=== PATIENT | female | born 1955 | race Caucasian/White ===

== ENCOUNTER → 2016-10-28 | Outpatient (CLI) | payer MEDICAID ==
[2016-10-28 09:57] LABS: ALT 30 U/L (9-52); AST 18 U/L (14-36); Alkaline Phosphatase 96 U/L (38-126); Anion Gap 14 mmol/L; Basophils # (A) 0.1 k/uL (0-0.2); Basophils % (A) 2 %; Blood Urea Nitrogen 19 mg/dL (7-17); CH 28.9; CHCM 31.9; Calcium 9.9 mg/dL (8.4-10.2); Carbon Dioxide 23 mmol/L (22-30); Chloride 105 mmol/L (98-107); Cholesterol 192 mg/dL (<200); Eosinophils # (A) 0.2 k/uL (0-0.7); Eosinophils % (A) 2 %; Glucose 101 mg/dL (74-99); HCT 40.2 % (34.0-46.0); HDL Cholesterol 64 mg/dL (40-60); HDW 2.65; HGB 12.9 gm/dL (11.4-16.0); Luc # (Auto) 0.22; Luc % (Auto) 3; Lymphocytes % (A) 29 %; MCH 29.1 pg (25.0-35.0); MCV 90.9 fL (80.0-100.0); Mean Platelet Volume 7.1; Monocytes # (A) 0.4 k/uL (0-1.0); Monocytes % (A) 6 %; Neutrophils # (A) 3.8 k/uL (1.3-7.7); Neutrophils % (A) 57 %; Non-African American GFR(MDRD) 50 (>60 ml/min/1.73 sqM); Potassium 4.1 mmol/L (3.5-5.1); RBC 4.43 m/uL (3.80-5.40); RDW 13.5 % (11.5-15.5); Sodium 142 mmol/L (137-145); Total Bilirubin 0.6 mg/dL (0.2-1.3); Total Protein 7.5 g/dL (6.3-8.2); Triglycerides 93 mg/dL (<150); WBC 6.7 k/uL (3.8-10.6); WBC (Perox) 7.05
== END ==
LOC: LABWHC1 08:45
PROVIDERS: ATTEND Family Medicine
DX: I10 Essential (primary) hypertension (principal); E03.9 Hypothyroidism, unspecified; Z79.899 Other long term (current) drug therapy
CPT/HCPCS: 36415; 80053; 80061; 84443; 85025

== ENCOUNTER → 2016-10-28 | Outpatient (CLI) | payer MEDICAID ==
--- NOTE | 2016-10-28 17:07 | WWHP ---
CHIEF COMPLAINT: Patient is here for her routine gynecologic exam and mammogram. HPI: This is a 61-year-old, G3, P2-1-0-4 with an LMP of 1996. She is status post vaginal hysterectomy with rectocele repair in 1996. She denies any significant hot flashes, but is complaining of vaginal dryness with intercourse. She has used vaginal lubricant, but continues to have some dryness. PAST MEDICAL HISTORY: Chronic hypertension, gastroesophageal reflux disease, hypothyroidism and depression. MEDICATIONS: 1. Lotrel 10/20 mg daily. 2. Nexium 20 mg daily. 3. Celexa 20 mg daily. 4. Synthroid 125 mcg daily. ALLERGIES TO SULFA, WHICH CAUSED HIVES. PAST SURGICAL HISTORY: Vaginal hysterectomy with rectocele repair in 1996, laparotomy with removal of an endometrioma at age 30, knee surgery in the past, retinal eye surgery, colonoscopy x3. The most recent was 2012 and a breast reduction surgery in the past. PAST OB HISTORY: 4 vaginal deliveries. 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 She has no history of STDs. SOCIAL HISTORY: She denies tobacco and drug use and has about 4 alcoholic drinks per year. 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 She has 12 grandchildren. FAMILY HISTORY: Sister, brother and mother have diabetes. Brother and father have coronary artery disease in her father from an CA. She denies family history cancer of the breast, uterus, ovaries or colon. PHYSICAL EXAM: Blood pressure 165/83. Height 5 feet 9 inches. Weight 273 pounds. Temperature 96.3, pulse 116. Ts is a well-developed, heavyset white female who is alert and oriented x3, in no acute distress. HEENT is within normal limits. NECK: Supple without mass or thyromegaly. CHEST AND LUNGS: Clear to auscultation. HEART: Mild tachycardia. Breasts are without mass or discharge. Axillary is negative for adenopathy. BACK: Negative for CVA tenderness. ABDOMEN: Soft, nontender, without palpable masses. PELVIC: External genitalia reveals mild atrophy without lesions. Vagina reveals mild atrophy without lesions and there is no evidence of prolapse. Bimanual is negative for mass or tenderness. Rectovaginal is negative for mass or tenderness and is negative for occult blood. EXTREMITIES: Nontender. IMPRESSION: 1. A 61-year-old menopausal female, status post vaginal hysterectomy for benign reasons with normal gynecologic exam. 2. Vaginal dryness secondary to genital atrophy. PLAN: 1. Pap smears have been discontinued. 2. Self-breast examination was discussed. 3. Mammogram will be done today. Her last one was about 4 to 5 years ago. 4. We have discussed her elevated blood pressure. She does do self-blood pressure checks and will follow up with Dr. De Dios for her elevated blood pressures. She states she has an appointment with him coming up this month. 5. Osteoporosis prevention was discussed. She states she had a normal bone density test with Dr. De Dios in his office approximately 2014. 6. Trial of Premarin vaginal cream 1 to 2 g intravaginally twice weekly for her vaginal dryness. 7. She will return in 1 year.
--- NOTE | 2016-10-29 11:30 | MM ---
Reason for exam: screening (asymptomatic). Last mammogram was performed 5 years and 4 months ago. History: Patient is postmenopausal. Reductions of both breasts, 2002. Physical Findings: A clinical breast exam by your physician is recommended on an annual basis and results should be correlated with mammographic findings. MG 3D Screening Mammo W/Cad Bilateral CC and MLO view(s) were taken. Prior study comparison: June 15, 2011, CAD bilateral diagnostic mammogram. October 30, 2008, bilateral diagnostic digital mammog. The breast tissue is almost entirely fat. There is no discrete abnormality. No significant changes when compared with prior studies. ASSESSMENT: Negative, BI-RAD 1 RECOMMENDATION: Routine screening mammogram of both breasts in 1 year.
== END | disposition home or self-care (01) ==
LOC: WWCWWP 07:38
PROVIDERS: ATTEND Obstetrics & Gynecology
DX: Z12.31 Encounter for screening mammogram for malignant neoplasm of breast (principal)
CPT/HCPCS: 77063; G0202; 36415; 80053; 80061; 84443; 85025

== ENCOUNTER → 2018-02-15 | Outpatient (CLI) | payer MEDICAID ==
--- NOTE | 2018-02-15 15:00 | XR ---
EXAMINATION TYPE: XR skull complete DATE OF EXAM: 02/15/2018 COMPARISON: NONE HISTORY: Occipital skull pain. TECHNIQUE: 4 views of the skull were obtained. FINDINGS: No diploic space widening is seen. No lytic lesion is noted. No osseous calvarial suspiciou s lesion is seen. No sutural widening. Orbits are symmetric. Minimal mucosal thickening is present wi thin the maxillary sinuses. Nasal septum is midline. No focal soft tissue swelling. No evidence of ac garfield fracture or dislocation. IMPRESSION: No suspicious radiographic findings of the skull or surrounding soft tissues.
--- NOTE | 2018-02-15 15:43 | XR ---
EXAMINATION TYPE: XR cervical spine comp DATE OF EXAM: 02/15/2018 TECHNIQUE: Frontal, lateral, oblique, swimmers, and open mouth view of the cervical spine are katte d. HISTORY: M54.12 M79.2 COMPARISON: None FINDINGS: The cervical spine is visualized in its entirety from C1 thru the top of T1 level, it is s atisfactory in alignment without evidence of acute fracture or dislocation. Multilevel small anterior osteophytes and intervertebral disc space narrowing are seen in addition to minimal facet arthropath y and uncovertebral hypertrophy. There is mild right-sided neural foraminal narrowing at C6-C7 and at C5-6 on the left . The pre-vertebral soft tissue appears within normal limits. The C1-C2 articulati on is within normal limits on the open mouth view. The oblique images are within normal limits. IMPRESSION: No acute fracture or dislocation is seen in the cervical spine. Mild multilevel degenera tive disc disease with resultant mild neural foraminal narrowing radiographically at C6-C7 on the rig ht and C5-C6 on the left.
== END | disposition home or self-care (01) ==
LOC: RADXRMAIN 12:52
PROVIDERS: ATTEND Family Medicine
DX: M99.71 Connective tissue and disc stenosis of intervertebral foramina of cervical region (principal); M50.10 Cervical disc disorder with radiculopathy, unspecified cervical region; M79.2 Neuralgia and neuritis, unspecified
CPT/HCPCS: 70260; 72050

== ENCOUNTER → 2018-03-22 | Outpatient (CLI) | payer MEDICAID ==
[2018-03-22 08:08] VITALS: BP 136/85; PULSE 90; TEMP 97.9; BMI 39.5
--- NOTE | 2018-03-22 08:36 | P.HPOB ---
History of Present Illness H&P Date: 03/22/18 Chief Complaint: The patient is here for her routine gynecologic exam and mammogram. This is a 62-year-old with an LMP of 1996. The patient is status post vaginal hysterectomy and rectocele repair in 1996. Patient is without gynecologic complaints. Review of Systems The patient has lost 5 pounds over the last year. She denies respiratory, cardiac, or G.I. problems. 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 She is s/p Vaginal hysterectomy and rectocele repair. History of Any Multi-Drug Resistant Organisms: None Reported Past Surgical History: Breast Surgery (Reduction surgery), Hysterectomy ( Vaginal 1996 with rectocele repair), Orthopedic Surgery Additional Past Surgical History / Comment(s): RIGHT EYE REPAIR ,LEFT KNEE, laparotomy with the removal of endometrioma at age 30. Colonoscopy 2013(3rd). 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 - Past Family History Sister(s) Family Medical History: Diabetes Mellitus Brother(s) Family Medical History: Diabetes Mellitus, Myocardial Infarction ([place]) Mother Family Medical History: Diabetes Mellitus Father Family Medical History: Myocardial Infarction ([place]), Thyroid Disorder Medications and Allergies Home Medications Medication Instructions Recorded Confirmed Type Citalopram Hydrobromide [CeleXA] mg PO DAILY 03/22/18 History Esomeprazole Magnesium [NexIUM] mg PO DAILY 03/22/18 History Levothyroxine Sodium [Synthroid] mcg PO DAILY 03/22/18 History amLODIPine BESYLATE/BENAZEPRIL cap PO DAILY 03/22/18 History [Lotrel 10-20 mg Capsule] Allergies Allergy/AdvReac Type Severity Reaction Status Date / Time Sulfa (Sulfonamide Allergy Rash/Hives Verified 03/22/18 08:03 Antibiotics) Exam Vital Signs Temp Pulse BP 03/22/18 08:03 97.9 F 90 136/85 Intake and Output 03/21/18 03/22/18 03/22/18 22:59 06:59 14:59 Other: Weight 121.563 kg Height 5'9", BMI 39.6. This is a well-developed well-nourished heavyset white female who is alert and oriented times 3 in no acute distress. HEENT: Within normal limits. NECK: Supple without mass or thyromegaly. CHEST AND LUNGS: Clear to auscultation. HEART: Regular rate and rhythm. BREASTS: Are without mass or discharge. Consistent with bilateral breast reduction surgery. AXILLARY EXAM: Negative for adenopathy. BACK: Negative for CVA tenderness. ABDOMEN: Soft, nontender, without palpable masses. PELVIC EXAM: External genitalia appears normal with mild atrophy. Vagina appears normal is mild atrophy. There is no evidence of prolapse. Bimanual examination is negative for mass or tenderness. RECTAL EXAM: Rectovaginal exam is negative for mass or tenderness and is negative for occult blood. EXTREMITIES: Nontender. IMPRESSION: 1. 62-year-old menopausal female status post vaginal hysterectomy and rectocele repair for benign reasons with normal gynecologic exam. PLAN: 1. Pap smears have been discontinued. 2. Self breast awareness was discussed with the patient. 3. Screening mammogram will be done today. 4. Osteoporosis prevention was discussed. Bone density testing was done by Dr. De Dios approximately in 2014 and was normal for the patient. She will do her bone density testing through Dr. De Dios. 5. She will return in one year.
--- NOTE | 2018-03-23 12:48 | MM ---
Reason for exam: screening (asymptomatic). Last mammogram was performed 1 year and 5 months ago. History: Patient is postmenopausal. Reductions of both breasts, 2001. Physical Findings: A clinical breast exam by your physician is recommended on an annual basis and results should be correlated with mammographic findings. MG 3D Screening Mammo W/Cad Bilateral CC and MLO view(s) were taken. Prior study comparison: October 28, 2016, bilateral MG 3d screening mammo w/cad. June 15, 2011, CAD bilateral diagnostic mammogram. The breast tissue is almost entirely fat. Stable benign calcifications. There is no discrete abnormality. No significant changes when compared with prior studies. ASSESSMENT: Benign, BI-RAD 2 RECOMMENDATION: Routine screening mammogram of both breasts in 1 year.
== END | disposition home or self-care (01) ==
LOC: WWCWWP 07:50
PROVIDERS: ATTEND Obstetrics & Gynecology
DX: Z12.31 Encounter for screening mammogram for malignant neoplasm of breast (principal)
CPT/HCPCS: 77063; 77067

== ENCOUNTER → 2019-06-28 | Outpatient (CLI) | payer MEDICAID ==
[2019-06-28 11:41] VITALS: BP 135/89; PULSE 86; RESP 18; TEMP 98.2
--- NOTE | 2019-06-28 12:09 | P.HPOB ---
History of Present Illness H&P Date: 06/28/19 Chief Complaint: The patient is here for her routine gynecologic exam and ma mmogram. This is a 64 year old 0104 with an LMP of 1996. The patient is status post vaginal hysterectomy with rectocele repair for benign reasons. The patient is without gynecologic complaints. Review of Systems The patient's weight has been stable over the last year. She denies respiratory, cardiac, or G.I. problems. Past Medical History Past Medical History: GERD/Reflux, Hypertension, Thyroid Disorder Additional Past Medical History / Comment(s): Hypothyroidism. 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 History of Any Multi-Drug Resistant Organisms: None Reported Past Surgical History: Breast Surgery, Hysterectomy, Orthopedic Surgery Additional Past Surgical History / Comment(s): RIGHT EYE REPAIR ,LEFT KNEE, bilateral breast reduction, laparotomy with the removal of endometrioma at age 30. Colonoscopy 2013(3rd, next after 10yr). 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 - Past Family History Sister(s) Family Medical History: Diabetes Mellitus Brother(s) Family Medical History: Diabetes Mellitus, Myocardial Infarction ([place]) Mother Family Medical History: Diabetes Mellitus Father Family Medical History: Myocardial Infarction ([place]), Thyroid Disorder Medications and Allergies Home Medications Medication Instructions Recorded Confirmed Type Citalopram Hydrobromide [CeleXA] 20 mg PO DAILY 03/22/18 06/28/19 History Esomeprazole Magnesium [NexIUM] 20 mg PO DAILY 03/22/18 06/28/19 History Levothyroxine Sodium [Synthroid] 25 mcg PO DAILY 03/22/18 06/28/19 History amLODIPine BESYLATE/BENAZEPRIL 1 cap PO DAILY 03/22/18 06/28/19 History [Lotrel 10-20 mg Capsule] Allergies Allergy/AdvReac Type Severity Reaction Status Date / Time Sulfa (Sulfonamide Allergy Rash/Hives Verified 06/28/19 11:41 Antibiotics) Exam Vital Signs Temp Pulse Resp BP Pulse Ox 06/28/19 11:35 98.2 F 86 18 135/89 95 Intake and Output 06/27/19 06/28/19 06/28/19 22:59 06:59 14:59 Other: Weight 120.656 kg Height 5 feet 9 inches, weight 266 pounds, BMI 39.3. This is a well-developed well-nourished heavyset white female who is alert and oriented times 3 in no acute distress. HEENT: Within normal limits. NECK: Supple without mass or thyromegaly. CHEST AND LUNGS: Clear to auscultation. HEART: Regular rate and rhythm. BREASTS: Are without mass or discharge. Both breasts are consistent with previous breast reduction surgery. AXILLARY EXAM: Negative for adenopathy. BACK: Negative for CVA tenderness. ABDOMEN: Soft, nontender, without palpable masses. PELVIC EXAM: External genitalia appears normal with mild atrophy. Vagina appears normal mild atrophy. There is no evidence of prolapse. Bimanual examination is negative for mass or tenderness. RECTAL EXAM: Rectovaginal exam is negative for mass or tenderness and is negative for occult blood. EXTREMITIES: Nontender. IMPRESSION: 1. 64-year-old menopausal female who is status post vaginal hysterectomy and rectocele repair for benign reasons, with normal gynecologic exam. PLAN: 1. Pap smears have been discontinued. 2. Self breast awareness was discussed with the patient. 3. Screening mammogram will be done today. 4. Osteoporosis prevention was discussed. I have stressed the importance of adequate calcium, vitamin D and regular exercise. Recommended amounts of calcium and vitamin D were also discussed. She previously had a bone density test done through Dr. De Dios in 2015 and was normal per the patient. I have recommended repeating bone density testing at her next well woman visit. 5. The patient was advised to return in 1-2 years for her well woman examination.
--- NOTE | 2019-06-30 12:24 | MM ---
Reason for exam: screening (asymptomatic). Last mammogram was performed 1 year and 3 months ago. History: Patient is postmenopausal. Reductions of both breasts, 2002. Physical Findings: A clinical breast exam by your physician is recommended on an annual basis and results should be correlated with mammographic findings. MG 3D Screening Mammo W/Cad Bilateral CC and MLO view(s) were taken. Prior study comparison: March 22, 2018, bilateral MG 3d screening mammo w/cad. October 28, 2016, bilateral MG 3d screening mammo w/cad. The breast tissue is almost entirely fat. No significant changes when compared with prior studies. ASSESSMENT: Benign, BI-RAD 2 RECOMMENDATION: Routine screening mammogram of both breasts in 1 year.
== END | disposition home or self-care (01) ==
LOC: WWCWWP 11:15
PROVIDERS: ATTEND Obstetrics & Gynecology
DX: Z12.31 Encounter for screening mammogram for malignant neoplasm of breast (principal)
CPT/HCPCS: 77063; 77067

== ENCOUNTER 2020-06-15 18:27 | Observation (INO) | payer MEDICARE ==
[2020-06-15] MEDS ORDERED: ONDANSETRON 4 MG/2 ML VIAL IVP STA (18:49)
[2020-06-15] MEDS ORDERED: MAG HYDROX/AL HYDROX/SIMETH 30 ML, HYOSCYAMINE ELIXIR 10 ML, LIDOCAINE VISCOUS 2% 10 ML PO STA ×3 (18:50)
--- NOTE | 2020-06-15 19:01 | ED ---
General Adult HPI - General Chief complaint: Chest Pain Stated complaint: chest pain Time Seen by Provider: 06/15/20 18:36 Source: patient Mode of arrival: ambulatory Limitations: no limitations - History of Present Illness Initial comments: Patient presents the ED with her for evaluation. Patient states that she developed epigastric abdominal pain radiating to her left shoulder and right jaw about 25 minutes ago. Patient states that her pain began about 10 minutes after eating dinner, and she states that she ate pancakes and sausage for d inner. Patient also states that she had a small bout of emesis when her pain was more severe, but she denies feeling nauseated currently. Patient states that her pain was 10 out of 10 when at its worst, and she states that her pain is currently 5 out of 10 in severity. Patient denies trauma or injury, fever or chills, headache, focal neuro deficit, chest pain, dyspnea, cough or cold symptoms, palpitations, dizziness, diarrhea or constipation, bloody or melanotic stool, hematemesis, dysuria or urinary symptoms, back or flank pain, leg or calf swelling or pain, or any other symptoms or complaints. Patient states that she has a hiatal hernia. - Related Data Home Medications Medication Instructions Recorded Confirmed Citalopram Hydrobromide [CeleXA] 20 mg PO DAILY 03/22/18 06/15/20 Esomeprazole Magnesium [NexIUM] 20 mg PO DAILY 03/22/18 06/15/20 amLODIPine BESYLATE/BENAZEPRIL 1 cap PO DAILY 03/22/18 06/15/20 [Lotrel 10-20 mg Capsule] Cetirizine HCl [Zyrtec] 10 mg PO DAILY 06/15/20 06/15/20 Levothyroxine Sodium [Synthroid] 125 mcg PO DAILY 06/15/20 06/15/20 Vitamin D3(Unknown Dose) 1 tab PO DAILY 06/15/20 06/15/20 Allergies Allergy/AdvReac Type Severity Reaction Status Date / Time Sulfa (Sulfonamide Allergy Rash/Hives Verified 06/15/20 18:32 Antibiotics) Review of Systems ROS Statement: Those systems with pertinent positive or pertinent negative responses have been documented in the HPI. ROS Other: All systems not noted in ROS Statement are negative. Past Medical History Past Medical History: GERD/Reflux, Hypertension, Thyroid Disorder Additional Past Medical History / Comment(s): Hypothyroidism. 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 History of Any Multi-Drug Resistant Organisms: None Reported Past Surgical History: Breast Surgery, Hysterectomy, Orthopedic Surgery Additional Past Surgical History / Comment(s): RIGHT EYE REPAIR ,LEFT KNEE, bilateral breast reduction, laparotomy with the removal of endometrioma at age 30. Colonoscopy 2013(3rd, next after 10yr). Past Psychological History: Depression Smoking Status: Never smoker Past Alcohol Use History: Rare Past Drug Use History: None Reported - Past Family History Sister(s) Family Medical History: Diabetes Mellitus Additional Family Medical History / Comment(s): Brother with CAD Brother(s) Family Medical History: Diabetes Mellitus, Myocardial Infarction ([place]) Mother Family Medical History: Diabetes Mellitus Father Family Medical History: Myocardial Infarction ([place]), Thyroid Disorder General Exam Limitations: no limitations General appearance: alert, in no apparent distress Head exam: Present: atraumatic, normocephalic Eye exam: Present: normal appearance, EOMI ENT exam: Present: mucous membranes moist Neck exam: Present: other (Trachea is in midline) Respiratory exam: Present: normal lung sounds bilaterally. Absent: respiratory distress, wheezes, rales, rhonchi Cardiovascular Exam: Present: regular rate, normal rhythm, normal heart sounds, other (Normal radial pulses bilaterally) GI/Abdominal exam: Present: soft, other (Mild epigastric tenderness; negative Lynn's sign). Absent: distended, guarding, rebound Extremities exam: Present: other (Negative Homans sign bilaterally). Absent: tenderness, pedal edema, calf tenderness Neurological exam: Present: alert, oriented X3. Absent: motor sensory deficit Psychiatric exam: Present: normal affect, normal mood Skin exam: Present: warm, dry, intact, normal color Course Vital Signs 06/15/20 06/15/20 06/15/20 18:34 18:42 19:40 Temperature 99.9 F H Pulse Rate 86 84 Pulse Rate [ 85 Bag Sealer ] Respiratory 18 18 16 Rate Blood Pressure 164/121 150/95 O2 Sat by Pulse 100 99 Oximetry 06/15/20 21:00 Temperature 98.2 F Pulse Rate 80 Pulse Rate [ Bag Sealer ] Respiratory 16 Rate Blood Pressure 156/91 O2 Sat by Pulse 98 Oximetry - Reevaluation(s) Reevaluation #1: 06/15/20 20:53 Patient states that her pain has improved with ED treatment, and she denies development of any new symptoms while in the ED. Patient states that her epigastric pain has now resolved, but she continues to have mild left shoulder pain. Patient remains alert and breathing comfortably. Patient and are aware the patient's test results, and patient agrees with hospital admission at this time. 06/15/20 21:11 Case, H&P, test results and ED management thus far were discussed with Dr. De Dios. He accepts observational hospital admission. He recommends cardiology consultation. He has no further recommendations at this time. EKG Findings - EKG Comments: EKG Findings:: Normal sinus rhythm, ventricular rate of 92 bpm, no ectopy, normal OK and QRS intervals, normal QT interval, leftward axis, nonspecific ST abnormality Medical Decision Making - Medical Decision Making Patient's EKG shows no definite acute ischemic abnormality. Patient's chest x- ray and gallbladder ultrasound are unremarkable. Patient's troponin is negative. Patient's labs are fairly unremarkable. Given the patient's cardiac risk factors and symptoms, will admit the patient to the hospital for serial troponins, further evaluation and monitoring. Dr. De Dios has accepted hospital admission. - Lab Data Result diagrams: 06/15/20 18:59 06/15/20 18:59 Lab Results 06/15/20 06/15/20 06/15/20 Range/Units 18:59 18:59 18:59 WBC 9.6 (3.8-10.6) k/uL RBC 4.83 (3.80-5.40) m/uL Hgb 12.3 (11.4-16.0) gm/dL Hct 39.0 (34.0-46.0) % MCV 80.7 (80.0-100.0) fL MCH 25.5 (25.0-35.0) pg MCHC 31.6 (31.0-37.0) g/dL RDW 15.1 (11.5-15.5) % Plt Count 417 (150-450) k/uL MPV 7.2 Neutrophils % 61 % Lymphocytes % 28 % Monocytes % 5 % Eosinophils % 3 % Basophils % 1 % Neutrophils # 5.8 (1.3-7.7) k/uL Lymphocytes # 2.7 (1.0-4.8) k/uL Monocytes # 0.5 (0-1.0) k/uL Eosinophils # 0.3 (0-0.7) k/uL Basophils # 0.1 (0-0.2) k/uL PT 9.7 (9.0-12.0) sec INR 0.9 (<1.2) APTT 23.7 (22.0-30.0) sec Sodium 136 L (137-145) mmol/L Potassium 3.9 (3.5-5.1) mmol/L Chloride 106 (98-107) mmol/L Carbon Dioxide 21 L (22-30) mmol/L Anion Gap 9 mmol/L BUN 19 H (7-17) mg/dL Creatinine 0.75 (0.52-1.04) mg/dL Est GFR (CKD-EPI)AfAm >90 (>60 ml/min/1.73 sqM) Est GFR (CKD-EPI)NonAf 83 (>60 ml/min/1.73 sqM) Glucose 121 H (74-99) mg/dL Calcium 9.3 (8.4-10.2) mg/dL Magnesium 1.9 (1.6-2.3) mg/dL Total Bilirubin 0.4 (0.2-1.3) mg/dL AST 21 (14-36) U/L ALT 18 (4-34) U/L Alkaline Phosphatase 106 (38-126) U/L Troponin I (0.000-0.034) ng/mL NT-Pro-B Natriuret Pep pg/mL Total Protein 7.2 (6.3-8.2) g/dL Albumin 4.1 (3.5-5.0) g/dL Lipase 140 (23-300) U/L 06/15/20 06/15/20 Range/Units 18:59 18:59 WBC (3.8-10.6) k/uL RBC (3.80-5.40) m/uL Hgb (11.4-16.0) gm/dL Hct (34.0-46.0) % MCV (80.0-100.0) fL MCH (25.0-35.0) pg MCHC (31.0-37.0) g/dL RDW (11.5-15.5) % Plt Count (150-450) k/uL MPV Neutrophils % % Lymphocytes % % Monocytes % % Eosinophils % % Basophils % % Neutrophils # (1.3-7.7) k/uL Lymphocytes # (1.0-4.8) k/uL Monocytes # (0-1.0) k/uL Eosinophils # (0-0.7) k/uL Basophils # (0-0.2) k/uL PT (9.0-12.0) sec INR (<1.2) APTT (22.0-30.0) sec Sodium (137-145) mmol/L Potassium (3.5-5.1) mmol/L Chloride (98-107) mmol/L Carbon Dioxide (22-30) mmol/L Anion Gap mmol/L BUN (7-17) mg/dL Creatinine (0.52-1.04) mg/dL Est GFR (CKD-EPI)AfAm (>60 ml/min/1.73 sqM) Est GFR (CKD-EPI)NonAf (>60 ml/min/1.73 sqM) Glucose (74-99) mg/dL Calcium (8.4-10.2) mg/dL Magnesium (1.6-2.3) mg/dL Total Bilirubin (0.2-1.3) mg/dL AST (14-36) U/L ALT (4-34) U/L Alkaline Phosphatase (38-126) U/L Troponin I <0.012 (0.000-0.034) ng/mL NT-Pro-B Natriuret Pep 132 pg/mL Total Protein (6.3-8.2) g/dL Albumin (3.5-5.0) g/dL Lipase (23-300) U/L - Radiology Data Radiology results: report reviewed (Gallbladder ultrasound is negative), image reviewed (Chest x-ray shows a hiatal hernia and no acute cardiopulmonary disease) Disposition Clinical Impression: Epigastric pain Disposition: ADMITTED IP TO THIS [facility] Condition: Stable Is patient prescribed a controlled substance at d/c from ED?: No Time of Disposition: 20:56
[2020-06-15 19:26] LABS: Basophils # (A) 0.1 k/uL (0-0.2); Basophils % (A) 1 %; Eosinophils # (A) 0.3 k/uL (0-0.7); Eosinophils % (A) 3 %; HGB 12.3 gm/dL (11.4-16.0); Lymphocytes # (A) 2.7 k/uL (1.0-4.8); Lymphocytes % (A) 28 %; MCH 25.5 pg (25.0-35.0); MCHC 31.6 g/dL (31.0-37.0); MCV 80.7 fL (80.0-100.0); Mean Platelet Volume 7.2; Monocytes # (A) 0.5 k/uL (0-1.0); Monocytes % (A) 5 %; Neutrophils # (A) 5.8 k/uL (1.3-7.7); Neutrophils % (A) 61 %; Platelet Count 417 k/uL (150-450); RBC 4.83 m/uL (3.80-5.40); RDW 15.1 % (11.5-15.5); WBC 9.6 k/uL (3.8-10.6)
[2020-06-15] MEDS ORDERED: HYDROmorphone 1 MG/ML 1 ML SYRINGE IVP STA (19:35)
--- NOTE | 2020-06-15 19:35 | XR ---
EXAMINATION TYPE: XR chest 2V DATE OF EXAM: 06/15/2020 COMPARISON: 11/15/2014. HISTORY: Chest pain. TECHNIQUE: Frontal and lateral views of the chest are obtained. FINDINGS: There is demonstration of a moderate hiatal hernia with associated retrocardiac opacity. O therwise no significant infiltrate, pleural effusion, or pneumothorax seen. The cardiac silhouette s ize is within normal limits. The osseous structures are intact. IMPRESSION: Hiatal hernia. Otherwise no acute cardiopulmonary process.
[2020-06-15 19:38] LABS: Potassium 3.9 mmol/L (3.5-5.1)
[2020-06-15 19:39] LABS: ALT 18 U/L (4-34); AST 21 U/L (14-36); African American GFR (CKD) >90 (>60 ml/min/1.73 sqM); Albumin 4.1 g/dL (3.5-5.0); Alkaline Phosphatase 106 U/L (38-126); Anion Gap 9 mmol/L; Blood Urea Nitrogen 19 mg/dL (7-17); Calcium 9.3 mg/dL (8.4-10.2); Carbon Dioxide 21 mmol/L (22-30); Chloride 106 mmol/L (98-107); Glucose 121 mg/dL (74-99); Lipase 140 U/L (23-300); Magnesium 1.9 mg/dL (1.6-2.3); Non-African American GFR(CKD) 83 (>60 ml/min/1.73 sqM); Sodium 136 mmol/L (137-145); Total Bilirubin 0.4 mg/dL (0.2-1.3); Total Protein 7.2 g/dL (6.3-8.2)
[2020-06-15 19:43] LABS: INR 0.9 (<1.2); Partial Thromboplastin Time 23.7 sec (22.0-30.0); Prothrombin Time 9.7 sec (9.0-12.0)
--- NOTE | 2020-06-15 20:26 | US ---
EXAMINATION TYPE: US gallbladder DATE OF EXAM: 06/15/2020 COMPARISON: 10/16/2011. CLINICAL HISTORY: pain. abd pain today, patient now has shoulder pain EXAM MEASUREMENTS: Liver Length: 15.4 cm Gallbladder Wall: 0.2 cm CBD: 0.6 cm Right Kidney: 9.0 x 4.4 x 5.0 cm *overlying bowel gas severely limits exam Pancreas: limited views appear wnl Liver: known cysts within liver, largest anterior right lobe = 5.3 x 4.3 x 3.3cm,limited intercostal imaging due to gas Gallbladder: no obvious abnormality seen Evidence for sonographic Lynn's sign: no CBD: wnl Right Kidney: limited views appear wnl IMPRESSION: No sonographic evidence of acute abnormality. Stable hepatic cysts.
[2020-06-15] MEDS ORDERED: ASPIRIN 81 MG PO STA (20:49)
[2020-06-15] MEDS ORDERED: NALOXONE 0.4 MG/ML 1 ML VIAL IV PRN (20:56)
[2020-06-15] MEDS ORDERED: ONDANSETRON 4 MG/2 ML VIAL IVP PRN (20:56)
[2020-06-15] MEDS ORDERED: MORPHINE SULFATE 4 MG/ML SYRINGE IV PRN (20:56)
[2020-06-15] MEDS ORDERED: KETOROLAC 15 MG/ML 1 ML VIAL IVP STA (21:08)
[2020-06-15] MEDS ORDERED: METOCLOPRAMIDE 10 MG TAB PO STA (23:16)
[2020-06-16] MEDS: KETOROLAC 15 MG/ML 1 ML VIAL IVP PRN ×2 (02:16→07:41)
[2020-06-16] MEDS: MAG HYDROX/AL HYDROX/SIMETH 30 ML CUP PO PRN ×2 (02:18→06:24)
[2020-06-16] MEDS: LEVOTHYROXINE 125 MCG TAB PO SCH (06:25)
[2020-06-16 07:54] LABS: Basophils # (A) 0.1 k/uL (0-0.2); Basophils % (A) 1 %; Eosinophils # (A) 0.2 k/uL (0-0.7); Eosinophils % (A) 2 %; HCT 38.3 % (34.0-46.0); HGB 12.5 gm/dL (11.4-16.0); Lymphocytes # (A) 1.7 k/uL (1.0-4.8); Lymphocytes % (A) 13 %; MCHC 32.7 g/dL (31.0-37.0); MCV 79.7 fL (80.0-100.0); Mean Platelet Volume 7.1; Monocytes # (A) 0.6 k/uL (0-1.0); Monocytes % (A) 5 %; Neutrophils # (A) 10.7 k/uL (1.3-7.7); Neutrophils % (A) 79 %; Platelet Count 389 k/uL (150-450); RDW 15.1 % (11.5-15.5); WBC 13.5 k/uL (3.8-10.6)
[2020-06-16 08:11] LABS: ALT 21 U/L (4-34); AST 44 U/L (14-36); African American GFR (CKD) >90 (>60 ml/min/1.73 sqM); Albumin 4.5 g/dL (3.5-5.0); Alkaline Phosphatase 104 U/L (38-126); Anion Gap 9 mmol/L; Blood Urea Nitrogen 23 mg/dL (7-17); Calcium 9.6 mg/dL (8.4-10.2); Carbon Dioxide 25 mmol/L (22-30); Chloride 105 mmol/L (98-107); Glucose 146 mg/dL (74-99); Non-African American GFR(CKD) 82 (>60 ml/min/1.73 sqM); Potassium 4.4 mmol/L (3.5-5.1); Sodium 139 mmol/L (137-145); Total Bilirubin 0.9 mg/dL (0.2-1.3); Total Protein 7.9 g/dL (6.3-8.2)
[2020-06-16] MEDS: amLODIPine 10 MG TAB PO SCH (10:03)
[2020-06-16] MEDS ORDERED: IOPAMIDOL CONTRAST (ORAL USE) VIAL PO PRN (10:15)
[2020-06-16] MEDS ORDERED: ALPRAZolam 0.25 MG TAB PO STA (10:36)
[2020-06-16] MEDS: lisinopriL 20 MG TAB PO SCH (10:57)
--- NOTE | 2020-06-16 11:04 | P.HPIM ---
History of Present Illness H&P Date: 06/16/20 Chief Complaint: Chest pain 65-year-old presented emergency room with her for evaluation of worsening epigastric pain that radiated to her shoulder blades. It started approximately 25 minutes before presenting to the emergency room. She states that she had just eaten dinner and 10 minutes after that started to experience her chest pain. She also makes note that she had a small emesis that happened when her pain was the most severe. She does mention that she has experiences one time before and was self-limiting after only a few minutes. She has been evaluated in the past and found to have a hiatal hernia but chose not to have surgery at that time. Denies known trauma or injury, fever or chills, headache, dyspnea, palpitations, dizziness, cough or cold symptoms, constipation, diarrhea, bloody or melanotic stools, dysuria or urinary symptoms. Initial set of vital signs were temperature of 98.9, heart rate of 86, respiratory rate 18, blood pressure 164/121, O2 sat 100% on room air. Follow-up vital signs 1 hour later blood pressure is 150/95, respiratory rate is 16 pulse rate of 84. Initial lab work CBC with differential normal. Chemistry reveals sodium 136 potassium 3.9, albumin 19, creatinine 0.75. Serial troponins were all negative for all 3. EKG was signed for normal sinus rhythm with possible left atrial enlargement. Ultrasound of the gallbladder was completed, sonographic evidence of acute abnormality pulses pedal impression. With ultrasound or stenosis within the liver occurs anterior right lobe 5.3 x 4.3 x 3.3 cm. Chest x-ray from the emergency room pound moderate hiatal hernia with associated retrocardiac opacity. Otherwise no specific infiltrate, pleural effusion or pneumothorax is seen. The cardiac silhouette size is within normal limits and the osseous structures are intact. Review of Systems Constitutional: Reports as per HPI Ears, nose, mouth and throat: Reports as per HPI Cardiovascular: Reports chest pain, Reports high blood pressure Respiratory: Reports as per HPI Gastrointestinal: Reports as per HPI, Reports abdominal pain, Reports nausea, Reports vomiting Genitourinary: Reports as per HPI Menstruation: Reports as per HPI Musculoskeletal: Reports arm numbness/tingling, Reports low back pain (Noted pain from in between bilateral scapulas to lower back. Noted to feel tense and cramping like.) Integumentary: Reports as per HPI Neurological: Reports as per HPI Psychiatric: Reports as per HPI, Reports anxiety Endocrine: Reports as per HPI Past Medical History Past Medical History: GERD/Reflux, Hypertension, Thyroid Disorder Additional Past Medical History / Comment(s): Hypothyroidism. 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 History of Any Multi-Drug Resistant Organisms: None Reported Past Surgical History: Breast Surgery, Hysterectomy, Orthopedic Surgery Additional Past Surgical History / Comment(s): RIGHT EYE REPAIR ,LEFT KNEE, bilateral breast reduction, laparotomy with the removal of endometrioma at age 30. Colonoscopy 2013(3rd, next after 10yr). Past Anesthesia/Blood Transfusion Reactions: No Reported Reaction Past Psychological History: Depression Smoking Status: Never smoker Past Alcohol Use History: Rare Past Drug Use History: None Reported Additional History: Hiatal hernia without surgery - Past Family History Sister(s) Family Medical History: Diabetes Mellitus Additional Family Medical History / Comment(s): Brother with CAD Brother(s) Family Medical History: Congestive Heart Failure (CHF), Diabetes Mellitus, Myocardial Infarction ([place]) Mother Family Medical History: Diabetes Mellitus Father Family Medical History: Myocardial Infarction ([place]), Thyroid Disorder Medications and Allergies Home Medications Medication Instructions Recorded Confirmed Type Citalopram Hydrobromide [CeleXA] 20 mg PO DAILY 03/22/18 06/15/20 History Esomeprazole Magnesium [NexIUM] 20 mg PO DAILY 03/22/18 06/15/20 History amLODIPine BESYLATE/BENAZEPRIL 1 cap PO DAILY 03/22/18 06/15/20 History [Lotrel 10-20 mg Capsule] Cetirizine HCl [Zyrtec] 10 mg PO DAILY 06/15/20 06/15/20 History Levothyroxine Sodium [Synthroid] 125 mcg PO DAILY 06/15/20 06/15/20 History Vitamin D3(Unknown Dose) 1 tab PO DAILY 06/15/20 06/15/20 History Allergies Allergy/AdvReac Type Severity Reaction Status Date / Time Sulfa (Sulfonamide Allergy Rash/Hives Verified 06/15/20 18:32 Antibiotics) Physical Exam Vitals: Vital Signs Temp Pulse Pulse Resp BP BP Pulse Ox 06/16/20 09:00 18 06/16/20 08:54 85 151/84 06/16/20 07:36 98.1 F 97 18 126/86 97 06/16/20 03:00 97.3 F L 98 18 132/72 95 06/15/20 22:10 98.9 F 92 18 142/91 98 06/15/20 21:00 98.2 F 80 16 156/91 98 06/15/20 19:40 84 16 150/95 99 06/15/20 18:42 85 18 06/15/20 18:34 99.9 F H 86 18 164/121 100 Intake and Output 06/15/20 06/16/20 06/16/20 22:59 06:59 14:59 Output Total 100 Balance -100 Output: Emesis 100 Other: Voiding Method Toilet # Emeses 3 Weight 113.398 kg GENERAL: Alert and oriented, anxious, but in no apparent distress. HEAD: Atraumatic, normocephalic. EYES: Pupils equal round and reactive to light, extraocular movements intact, sclera anicteric, conjunctiva are normal. ENT:nares patent, oropharynx clear without exudates. Moist mucous membranes. NECK: Normal range of motion, supple without lymphadenopathy or JVD, no thyromegaly LUNGS: Breath sounds clear to auscultation bilaterally and equal. No wheezes rales or rhonchi. HEART: Regular rate and rhythm without murmurs, rubs or gallops.S1S2 Normal ABDOMEN: Soft, mild epigastric tenderness, normoactive bowel sounds. No guarding, no rebound. No masses appreciated. EXTREMITIES: Normal range of motion, no pitting or edema. No clubbing or cyanosis. Pain noted from mid scapula to mid lower back midline with palpation. No masses or abnormality noted. NEUROLOGICAL: Cranial nerves II through XII grossly intact. Normal speech, normal gait. PSYCH: Alert and oriented 3, anxious, normal affect. SKIN: Warm, Dry, normal turgor, no rashes or lesions noted. Results CBC & Chem 7: 06/16/20 07:36 06/16/20 07:36 Labs: Abnormal Lab Results - Last 24 Hours (Table) 06/15/20 06/16/20 06/16/20 Range/Units 18:59 07:36 07:36 WBC 13.5 H (3.8-10.6) k/uL MCV 79.7 L (80.0-100.0) fL Neutrophils # 10.7 H (1.3-7.7) k/uL Sodium 136 L (137-145) mmol/L Carbon Dioxide 21 L (22-30) mmol/L BUN 19 H 23 H (7-17) mg/dL Glucose 121 H 146 H (74-99) mg/dL AST 44 H (14-36) U/L Thrombosis Risk Factor Assmnt - Choose All That Apply Each Risk Factor Represents 2 Points: Age 61-74 years Thrombosis Risk Factor Assessment Total Risk Factor Score: 2 Thrombosis Risk Factor Assessment Level: Low Risk Assessment and Plan (1) Back pain Current Visit: Yes Status: Acute Code(s): M54.9 - DORSALGIA, UNSPECIFIED SNOMED Code(s): 670369003 (2) Chest pain Current Visit: Yes Status: Acute Code(s): R07.9 - CHEST PAIN, UNSPECIFIED SNOMED Code(s): 26833552 (3) Nausea & vomiting Current Visit: Yes Status: Acute Code(s): R11.2 - NAUSEA WITH VOMITING, UNSPECIFIED SNOMED Code(s): 67079350 (4) Elevated blood pressure reading Current Visit: Yes Status: Acute Code(s): R03.0 - ELEVATED BLOOD-PRESSURE READING, W/O DIAGNOSIS OF HTN SNOMED Code(s): 06405684 (5) Anxiety Current Visit: Yes Status: Acute Code(s): F41.9 - ANXIETY DISORDER, UNSPEC IFIED SNOMED Code(s): 05471174 (6) History of hiatal hernia Current Visit: Yes Status: Acute Code(s): Z87.19 - PERSONAL HISTORY OF OTHER DISEASES OF THE DIGESTIVE SYSTEM SNOMED Code(s): 820187422 (7) Epigastric pain Current Visit: Yes Status: Acute Code(s): R10.13 - EPIGASTRIC PAIN SNOMED Code(s): 88198534 Plan: 1. Cardiology consult. 2. GI consult. 3. CT of chest and abdomen with and without contrast assess for aortic cortication. 4. NG tube to low intermittent suction. 5. Diet: Nothing by mouth with ice chips and medications. 6. Reorder lab work 4 AM CBC, compressive metabolic panel. 7. We'll utilize Xanax for anxiety. 8. We will monitor vital signs, labs, imaging and will treat accordingly Time with Patient: Greater than 30
--- NOTE | 2020-06-16 13:32 | CT ---
EXAMINATION TYPE: CT chest abdomen w con DATE OF EXAM: 06/16/2020 COMPARISON: CT 08/03/2013. Same-day ultrasound. HISTORY: Continued back pain CT DLP: 1457.6 mGycm. Automated Exposure Control for Dose Reduction was Utilized. CONTRAST: CT scan of the thorax, abdomen and pelvis is performed with IV Contrast, patient injected with 100 ml mL of Isovue 300. FINDINGS: LUNGS: The lungs are grossly clear, there is no concerning parenchymal mass or nodule identified. T here is no pleural effusion or pneumothorax seen. The tracheobronchial tree is patent. MEDIASTINUM: There are no greater than 1 cm hilar or mediastinal lymph nodes. No pericardial effusi on is seen. OTHER: No additional significant abnormality is seen. LIVER/GB: Multiple scattered low attenuating hepatic foci with the largest measuring 4.4 cm and juan manuel tible with benign cysts. Unremarkable gallbladder. PANCREAS: No significant abnormality is seen. SPLEEN: No significant abnormality is seen. ADRENALS: No significant abnormality is seen. KIDNEYS: No hydronephrosis or significant nephrolithiasis. Right renal atherosclerotic calcification seen. BOWEL: Large hiatal hernia. No bowel obstruction, free air or fluid. GENITAL ORGANS: No gross abnormality seen. LYMPH NODES: No greater than 1cm abdominal lymph nodes are appreciated. OSSEOUS STRUCTURES: No significant abnormality is seen. OTHER: No significant additional abnormality is seen. IMPRESSION: No acute abnormality of the thorax or abdomen. Large hiatal hernia, progressed since [address] CT.
--- NOTE | 2020-06-16 13:40 | P.CRDCN ---
History of Present Illness Consult date: 06/16/20 Reason for Consult (text): Chest pain/LEFT shoulder pain Consult reason: chest pain Chief complaint: chest pain/LEFT shoulder pain History of present illness: HISTORY OF PRESENT ILLNESS AND PLAN: This is a 65-year-old female with history of depression, vaginal hysterectomy, rectocele repair, endometriosis, GERD, hypothyroid and hypertension. patient presents to ER with complaints of epigastric pain, nausea, vomiting and chest pain which radiates to her scapula. Patient states she ate pancakes and sausages for dinner last evening and about an hour later began to have symptoms. Patient states chest pain started and epigastric area traveled to her neck, jaw and left shoulder. Patient states pain also radiates to her scapula on back. Patient looks to be in mild distress and severe discomfort. GI has been consulted as well for hiatal hernia noted on chest x-ray. Patient continue sinus rhythm on telemetry. Troponins negative 3. DX of chest shows no acute process but large hiatal hernia. Recent ultrasound of gallbladder within normal limits, old liver lesions noted. Patient has no history of back pain. Patient did follow with Dr. Armas/cardiology many years ago. Patient states she has had these epigastric pains multiple times and they resolve on their own. Pt states vomiting improved symptoms. Patient current vital signs stable. Afebrile. 98% on 2 L. Labs unremarkable. No COVID testing completed. Patient has no complaints of cough, fever or shortness of breath. Patient will be going to CT of chest and abdomen. Patient does have family history of CAD, brother has PCI, stents and CABG history. No smoking HX. No DM. SIGNIFICANT PAST MEDICAL HISTORY: Vaginal hysterectomy, rectocele repair, depression, endometriosis, GERD, hypothyroid, hypertension and Family hx of CAD. PAST SURGICAL HISTORY: See list. EKG = sinus rhythm, heart rate 92 Troponins negative x 3 SIGNIFICANT LABORATORY VALUES: unremarkable. Chest x-ray 06/15/20, no acute process. Moderate hiatal hernia. Ultrasound of gallbladder, no acute process. Old liver cysts stable. Most recent echo = No recent testing Most recent stress testing = no recent testing REVIEW OF SYSTEMS: CONSTITUTIONAL: Denies fever. Denies chills. EYES: Denies blurred vision. Denies blurred vision or vision changes. Denies eye pain. EARS, NOSE, MOUTH & THROAT: Denies headache. Denies sore throat. Denies ear pain Denies hemoptysis. CARDIOVASCULAR: Complains of chest pain with radiation to neck, jaw, left shoulder and scapula. Denies shortness of breath. Denies orthopnea. Denies PND. Denies palpitations. RESPIRATORY: Denies cough. Denies shortness of breath. GASTROINTESTINAL: Complains of abdominal pain and distention. Denies diarrhea. Denies constipation. Complains of nausea and vomiting. MUSCULOSKELETAL: Complains of myalgias and weakness. INTEGUMENTARY: Denies pruitis. Denies rash. ENDOCRINE: Complains of fatigue. Denies weight change. Denies polydipsia. Denies polyurina Denies heat/cold intolerance. GENITOURINARY: Denies burning, hematuria or urgency with micturation. HEMATOLOGIC: Denies history of anemia. Denies bleeding. NEUROLOGIC: Denies numbness. Denies tingling. Complains of weakness. PSYCHIATRIC: Complains of anxiety. Denies depression. PHYSICAL EXAM: GENERAL: Well developed, in no acute distress. HEENT: Head is atraumatic, normocephalic. Pupils are equal, round. Extra ocular movements intact. Mucous membranes moist. Neck supple. No JVD. No carotid bruit. No thyromegaly. LUNGS: Clear to auscultation. No wheezes, rales or rhonchi. No chest wall tenderness on palpation or with deep breathing. HEART: Regular rate and rhythm, no rubs or gallops. S1 and S2 heard. No murmur. ABDOMEN: Abdominal exam, WNL. Bowel sounds x4 quads. Soft, non-tender, without masses, organomegaly, or abdominal aorta enlargement. EXTREMITIES/VASCULAR: Extremities have easily palpable radial, femoral, dorsalis pedis and posterior tibial pulses. No cyanosis, calf tenderness. No BLE edema. NEUROLOGIC: Patient is awake, alert and oriented x3. No focal neurologic abnormalities. FINAL IMPRESSION: 1. chest pain, no acute cardiology process 2. hypertension 3. hypothyroid 4. family history of CAD 5. moderate hiatal hernia on chest x-ray 6. Hyper-emesis PLAN: No acute cardiology process. Will order D-Dimer. Continue same all other medical/medication regimes. Patient to follow-up in office on discharge for stress testing with Dr. MARY JANE Givens in 2 weeks (Week of Jul 01 in afternoon). Nurse Practitioner note has been reviewed by the Physician. Signing provider agrees with the documented findings, assessment and plan of care. Past Medical History Past Medical History: GERD/Reflux, Hypertension, Thyroid Disorder Additional Past Medical History / Comment(s): Hypothyroidism. 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 History of Any Multi-Drug Resistant Organisms: None Reported Past Surgical History: Breast Surgery, Hysterectomy, Orthopedic Surgery Additional Past Surgical History / Comment(s): RIGHT EYE REPAIR ,LEFT KNEE, bilateral breast reduction, laparotomy with the removal of endometrioma at age 30. Colonoscopy 2013(3rd, next after 10yr). Past Anesthesia/Blood Transfusion Reactions: No Reported Reaction Past Psychological History: Depression Smoking Status: Never smoker Past Alcohol Use History: Rare Past Drug Use History: None Reported - Past Family History Sister(s) Family Medical History: Diabetes Mellitus Additional Family Medical History / Comment(s): Brother with CAD Brother(s) Family Medical History: Congestive Heart Failure ([place]), Diabetes Mellitus, Myocardial Infarction ([place]) Mother Family Medical History: Diabetes Mellitus Father Family Medical History: Myocardial Infarction ([place]), Thyroid Disorder Medications and Allergies Home Medications Medication Instructions Recorded Confirmed Type Citalopram Hydrobromide [CeleXA] 20 mg PO DAILY 03/22/18 06/15/20 History Esomeprazole Magnesium [NexIUM] 20 mg PO DAILY 03/22/18 06/15/20 History amLODIPine BESYLATE/BENAZEPRIL 1 cap PO DAILY 03/22/18 06/15/20 History [Lotrel 10-20 mg Capsule] Cetirizine HCl [Zyrtec] 10 mg PO DAILY 06/15/20 06/15/20 History Levothyroxine Sodium [Synthroid] 125 mcg PO DAILY 06/15/20 06/15/20 History Vitamin D3(Unknown Dose) 1 tab PO DAILY 06/15/20 06/15/20 History Allergies Allergy/AdvReac Type Severity Reaction Status Date / Time Sulfa (Sulfonamide Allergy Rash/Hives Verified 06/15/20 18:32 Antibiotics) Physical Exam Vitals: Vital Signs Temp Pulse Pulse Resp BP BP Pulse Ox 06/16/20 10:56 139/83 06/16/20 09:00 18 06/16/20 08:54 85 151/84 06/16/20 07:36 98.1 F 97 18 126/86 97 06/16/20 03:00 97.3 F L 98 18 132/72 95 06/15/20 22:10 98.9 F 92 18 142/91 98 06/15/20 21:00 98.2 F 80 16 156/91 98 06/15/20 19:40 84 16 150/95 99 06/15/20 18:42 85 18 06/15/20 18:34 99.9 F H 86 18 164/121 100 Intake and Output 06/15/20 06/16/20 06/16/20 22:59 06:59 14:59 Output Total 100 Balance -100 Output: Emesis 100 Other: Voiding Method Toilet # Emeses 3 Weight 113.398 kg Results 06/16/20 07:36 06/16/20 07:36 Cardiac Enzymes 06/15/20 06/15/20 06/15/20 Range/Units 18:59 18:59 22:29 AST 21 (14-36) U/L Troponin I <0.012 <0.012 (0.000-0.034) ng/mL 06/16/20 06/16/20 Range/Units 01:33 07:36 AST 44 H (14-36) U/L Troponin I <0.012 (0.000-0.034) ng/mL Coagulation 06/15/20 Range/Units 18:59 PT 9.7 (9.0-12.0) sec APTT 23.7 (22.0-30.0) sec CBC 06/15/20 06/16/20 Range/Units 18:59 07:36 WBC 9.6 13.5 H (3.8-10.6) k/uL RBC 4.83 4.80 (3.80-5.40) m/uL Hgb 12.3 12.5 (11.4-16.0) gm/dL Hct 39.0 38.3 (34.0-46.0) % Plt Count 417 389 (150-450) k/uL Comprehensive Metabolic Panel 06/15/20 06/16/20 Range/Units 18:59 07:36 Sodium 136 L 139 (137-145) mmol/L Potassium 3.9 4.4 (3.5-5.1) mmol/L Chloride 106 105 (98-107) mmol/L Carbon Dioxide 21 L 25 (22-30) mmol/L BUN 19 H 23 H (7-17) mg/dL Creatinine 0.75 0.76 (0.52-1.04) mg/dL Glucose 121 H 146 H (74-99) mg/dL Calcium 9.3 9.6 (8.4-10.2) mg/dL AST 21 44 H (14-36) U/L ALT 18 21 (4-34) U/L Alkaline Phosphatase 106 104 (38-126) U/L Total Protein 7.2 7.9 (6.3-8.2) g/dL Albumin 4.1 4.5 (3.5-5.0) g/dL Current Medications Generic Name Dose Route Start Last Admin Trade Name Freq PRN Reason Stop Dose Admin Al Hydroxide/Mg Hydroxide 30 ml 06/16/20 02:05 06/16/20 06:24 Mag Hydrox/Al Hydrox/Simeth 30 Ml Cup PO 30 ml Q4HR PRN Administration GI Upset Amlodipine Besylate 10 mg 06/16/20 09:00 06/16/20 10:03 Amlodipine 10 Mg Tab PO 10 mg DAILY RIKA Administration Ketorolac Tromethamine 15 mg 06/16/20 02:03 06/16/20 07:41 Ketorolac 15 Mg/Ml 1 Ml Vial IVP 06/19/20 02:03 15 mg Q6HR PRN Administration Moderate Pain Levothyroxine Sodium 125 mcg 06/16/20 06:30 06/16/20 06:25 Levothyroxine 125 Mcg Tab PO 125 mcg DAILY@0630 RIKA Administration Lisinopril 20 mg 06/16/20 09:00 06/16/20 10:57 Lisinopril 20 Mg Tab PO 20 mg DAILY RIKA Administration Morphine Sulfate 4 mg 06/15/20 20:56 06/16/20 10:07 Morphine Sulfate 4 Mg/Ml Syringe IV 4 mg Q4HR PRN Administration Severe Pain Naloxone HCl 0.2 mg 06/15/20 20:56 Naloxone 0.4 Mg/Ml 1 Ml Vial IV Q2M PRN Opioid Reversal Ondansetron HCl 4 mg 06/15/20 20:56 06/16/20 06:24 Ondansetron 4 Mg/2 Ml Vial IVP 4 mg Q8HR PRN Administration Nausea And Vomiting Intake and Output 06/15/20 06/16/20 06/16/20 22:59 06:59 14:59 Output Total 100 Balance -100 Output: Emesis 100 Other: Voiding Method Toilet # Emeses 3 Weight 113.398 kg 06/16/20 07:36 06/16/20 07:36 - EKG Interpretation EKG: sinus rhythm EKG Interpretations (text) Sinus Rhythm
[2020-06-16] MEDS: DEXTROSE 5%-0.9% NACL 1,000 ML IV SCH (15:41)
[2020-06-16] MEDS: HEPARIN SODIUM,PORCINE 5,000 UNIT/ML 1 ML VIAL SQ SCH (17:03)
--- NOTE | 2020-06-16 17:58 | NM ---
EXAMINATION TYPE: NM pul vent and perfuse DATE OF EXAM: 06/16/2020 COMPARISON: NONE HISTORY: Shortness of breath. TECHNIQUE: Utilizing inhalation of 69.3 mCi Tc 99m DTPA aerosol and intravenous injection of 5.23 mC i of Tc 99m MAA, ventilation and perfusion images are acquired post injection in multiple projections . FINDINGS: Normal radiotracer distribution is noted in the lungs. There is no evidence of mismatched defects. IMPRESSION: Normal VQ scan.
[2020-06-17] MEDS: DEXTROSE 5%-0.9% NACL 1,000 ML IV SCH ×2 (00:19→12:05)
[2020-06-17] MEDS: HEPARIN SODIUM,PORCINE 5,000 UNIT/ML 1 ML VIAL SQ SCH ×3 (00:19→15:55)
[2020-06-17] MEDS: LEVOTHYROXINE 125 MCG TAB PO SCH (05:47)
[2020-06-17] MEDS: lisinopriL 20 MG TAB PO SCH (08:45)
[2020-06-17] MEDS ORDERED: PANTOPRAZOLE 40 MG/10 ML VIAL IVP SCH (09:00)
[2020-06-17 09:43] LABS: Basophils # (A) 0.1 k/uL (0-0.2); Basophils % (A) 1 %; Eosinophils # (A) 0.3 k/uL (0-0.7); Eosinophils % (A) 4 %; HCT 32.6 % (34.0-46.0); HGB 10.2 gm/dL (11.4-16.0); Hypochromasia Slight; Lymphocytes # (A) 1.7 k/uL (1.0-4.8); Lymphocytes % (A) 24 %; MCHC 31.4 g/dL (31.0-37.0); MCV 82.6 fL (80.0-100.0); Mean Platelet Volume 7.2; Monocytes # (A) 0.5 k/uL (0-1.0); Monocytes % (A) 7 %; Neutrophils # (A) 4.5 k/uL (1.3-7.7); Neutrophils % (A) 62 %; Platelet Count 331 k/uL (150-450); RBC 3.95 m/uL (3.80-5.40); RDW 15.4 % (11.5-15.5); WBC 7.2 k/uL (3.8-10.6)
[2020-06-17 09:57] LABS: ALT 16 U/L (4-34); AST 24 U/L (14-36); African American GFR (CKD) >90 (>60 ml/min/1.73 sqM); Albumin 3.3 g/dL (3.5-5.0); Alkaline Phosphatase 87 U/L (38-126); Anion Gap 4 mmol/L; Blood Urea Nitrogen 16 mg/dL (7-17); Calcium 8.5 mg/dL (8.4-10.2); Carbon Dioxide 22 mmol/L (22-30); Chloride 112 mmol/L (98-107); Glucose 117 mg/dL (74-99); Non-African American GFR(CKD) >90 (>60 ml/min/1.73 sqM); Potassium 3.9 mmol/L (3.5-5.1); Sodium 138 mmol/L (137-145); Total Bilirubin 0.5 mg/dL (0.2-1.3); Total Protein 6.1 g/dL (6.3-8.2)
--- NOTE | 2020-06-17 11:10 | P.GSCN ---
History of Present Illness Consult date: 06/17/20 Reason for Consult: Hiatal hernia History of present illness: 65-year-old female known to our service. Patient with history of chronic reflux. She did have an upper endoscopy many years ago by myself. She believes that she had a hernia then. She has a strong history in her family with her children having moderate sized symptomatic hiatal hernias. Patient came to the hospital after Wednesday evening dinner. Since she had pain in the upper mid abdomen extending into the chest left shoulder and back. Somewhat relieved by vomiting episodes that occurred later that night. CAT scan confirmed a large hiatal hernia with approximately 60% of the stomach present above the diaphragm. The stomach both above and below the diaphragm was distended on the CAT scan. No definite volvulus was seen. No significant inflammatory changes were a ppreciated. Patient says her symptoms have resolved. She was being worked up for possible issues and has been cleared. Review of Systems The patient denies any acute changes in vision or hearing, no shortness of breath, no dysuria or hematuria, no headache, no runny nose, no rectal bleeding or melena, no unexplained weight loss Past Medical History Past Medical History: GERD/Reflux, Hypertension, Thyroid Disorder Additional Past Medical History / Comment(s): Hypothyroidism. 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 History of Any Multi-Drug Resistant Organisms: None Reported Past Surgical History: Breast Surgery, Hysterectomy, Orthopedic Surgery Additional Past Surgical History / Comment(s): RIGHT EYE REPAIR ,LEFT KNEE, bilateral breast reduction, laparotomy with the removal of endometrioma at age 30. Colonoscopy 2012(3rd, next after 10yr). Past Anesthesia/Blood Transfusion Reactions: No Reported Reaction Past Psychological History: Depression Smoking Status: Never smoker Past Alcohol Use History: Rare Past Drug Use History: None Reported - Past Family History Sister(s) Family Medical History: Diabetes Mellitus Additional Family Medical History / Comment(s): Brother with CAD Brother(s) Family Medical History: Congestive Heart Failure (CHF), Diabetes Mellitus, Myocardial Infarction (CT) Mother Family Medical History: Diabetes Mellitus Father Family Medical History: Myocardial Infarction (CT), Thyroid Disorder Medications and Allergies Home Medications Medication Instructions Recorded Confirmed Type Citalopram Hydrobromide [CeleXA] 20 mg PO DAILY 03/22/18 06/15/20 History Esomeprazole Magnesium [NexIUM] 20 mg PO DAILY 03/22/18 06/15/20 History amLODIPine BESYLATE/BENAZEPRIL 1 cap PO DAILY 03/22/18 06/15/20 History [Lotrel 10-20 mg Capsule] Cetirizine HCl [Zyrtec] 10 mg PO DAILY 06/15/20 06/15/20 History Levothyroxine Sodium [Synthroid] 125 mcg PO DAILY 06/15/20 06/15/20 History Vitamin D3(Unknown Dose) 1 tab PO DAILY 06/15/20 06/15/20 History Allergies Allergy/AdvReac Type Severity Reaction Status Date / Time Sulfa (Sulfonamide Allergy Rash/Hives Verified 06/15/20 18:32 Antibiotics) Surgical - Exam Vital Signs Temp Pulse Resp BP Pulse Ox 99.9 F H 86 18 164/121 100 06/15/20 18:34 06/15/20 18:34 06/15/20 18:34 06/15/20 18:34 06/15/20 18:34 Physical exam: General: Well-developed, well-nourished HEENT: Normocephalic, sclerae nonicteric Abdomen: Nontender, nondistended Extremities: No edema Neuro: Alert and oriented Results - Labs 06/17/20 09:08 06/17/20 09:08 Abnormal Lab Results - Last 24 Hours (Table) 06/16/20 06/17/20 06/17/20 Range/Units 11:12 09:08 09:08 Hgb 10.2 L (11.4-16.0) gm/dL Hct 32.6 L (34.0-46.0) % D-Dimer 0.61 H (<0.60) mg/L FEU Chloride 112 H (98-107) mmol/L Glucose 117 H (74-99) mg/dL Total Protein 6.1 L (6.3-8.2) g/dL Albumin 3.3 L (3.5-5.0) g/dL Diabetes panel 06/17/20 Range/Units 09:08 Sodium 138 (137-145) mmol/L Potassium 3.9 (3.5-5.1) mmol/L Chloride 112 H (98-107) mmol/L Carbon Dioxide 22 (22-30) mmol/L BUN 16 (7-17) mg/dL Creatinine 0.69 (0.52-1.04) mg/dL Glucose 117 H (74-99) mg/dL Calcium 8.5 (8.4-10.2) mg/dL AST 24 (14-36) U/L ALT 16 (4-34) U/L Alkaline Phosphatase 87 (38-126) U/L Total Protein 6.1 L (6.3-8.2) g/dL Albumin 3.3 L (3.5-5.0) g/dL Calcium panel 06/17/20 Range/Units 09:08 Calcium 8.5 (8.4-10.2) mg/dL Albumin 3.3 L (3.5-5.0) g/dL Pituitary panel 06/17/20 Range/Units 09:08 Sodium 138 (137-145) mmol/L Potassium 3.9 (3.5-5.1) mmol/L Chloride 112 H (98-107) mmol/L Carbon Dioxide 22 (22-30) mmol/L BUN 16 (7-17) mg/dL Creatinine 0.69 (0.52-1.04) mg/dL Glucose 117 H (74-99) mg/dL Calcium 8.5 (8.4-10.2) mg/dL Adrenal panel 06/17/20 Range/Units 09:08 Sodium 138 (137-145) mmol/L Potassium 3.9 (3.5-5.1) mmol/L Chloride 112 H (98-107) mmol/L Carbon Dioxide 22 (22-30) mmol/L BUN 16 (7-17) mg/dL Creatinine 0.69 (0.52-1.04) mg/dL Glucose 117 H (74-99) mg/dL Calcium 8.5 (8.4-10.2) mg/dL Total Bilirubin 0.5 (0.2-1.3) mg/dL AST 24 (14-36) U/L ALT 16 (4-34) U/L Alkaline Phosphatase 87 (38-126) U/L Total Protein 6.1 L (6.3-8.2) g/dL Albumin 3.3 L (3.5-5.0) g/dL Assessment and Plan (1) History of hiatal hernia Narrative/Plan: 65-year-old female with large hiatal hernia. I do believe the patient had some degree of obstruction related to the hernia that was contributing to her symptoms. Symptoms have resolved however. Options reviewed in detail. We'll order an esophagram/upper GI at this time. If there is no evidence of o bstruction would resume a liquid diet and discharge if tolerates. Patient will follow-up in the office to discuss surgical repair further. Current Visit: Yes Status: Acute Code(s): Z87.19 - PERSONAL HISTORY OF OTHER DISEASES OF THE DIGESTIVE SYSTEM SNOMED Code(s): 262896681
[2020-06-17] MEDS ORDERED: ACETAMINOPHEN IV (For NPO) 1,000 MG in EMPTY BAG 1 BAG IVPB ONE (12:15)
--- NOTE | 2020-06-17 12:53 | P.DS ---
Providers Date of admission: 06/15/20 20:56 Expected date of discharge: 06/17/20 Attending physician: Nirmal De Dios Consults: 06/15/20 21:10 Consult Physician Urgent Consulting Provider: Indra Meyers Consult Reason/Comments: epigastric pain and left shoulder pain Do you want consulting provider notified?: Yes 06/16/20 10:17 Consult Physician Urgent Consulting Provider: Cass Hernandez Consult Reason/Comments: Nausea and vomiting. Has pain from shoulder blades to mid lower back Do you want consulting provider notified?: Yes 06/17/20 09:19 Consult Physician Urgent Consulting Provider: Marco Antonio Potter Consult Reason/Comments: large hiatal hernia Do you want consulting provider notified?: Yes Primary care physician: Nirmal De Dios Hospital Course: Final diagnoses Nausea, vomiting, mid epigastric tenderness radiating to left shoulder and back, resolved after multiple emesis, suspect partial obstruction secondary to large hiatal hernia Chest pain, no acute cardiology process as per cardiology. Outpatient stress test. Gastroesophageal reflux disease Hypertension Hypothyroidism Depression Family history of CAD Hospital course:65-year-old presented emergency room with her for evaluation of worsening epigastric pain that radiated to her shoulder blades. It started approximately 25 minutes before presenting to the emergency room. She states that she had just eaten dinner and 10 minutes after that started to experience her chest pain. She also makes note that she had a small emesis that happened when her pain was the most severe. She does mention that she has experiences one time before and was self-limiting after only a few minutes. She has been evaluated in the past and found to have a hiatal hernia but chose not to have surgery at that time. Denies known trauma or injury, fever or chills, headache, dyspnea, palpitations, dizziness, cough or cold symptoms, constipation, diarrhea, bloody or melanotic stools, dysuria or urinary symptoms. Initial set of vital signs were temperature of 98.9, heart rate of 86, respiratory rate 18, blood pressure 164/121, O2 sat 100% on room air. Follow-up vital signs 1 hour later blood pressure is 150/95, respiratory rate is 16 pulse rate of 84. Initial lab work CBC with differential normal. Chemistry reveals sodium 136 potassium 3.9, albumin 19, creatinine 0.75. Serial troponins were all negative for all 3. EKG was signed for normal sinus rhythm with possible left atrial enlargement. Ultrasound of the gallbladder was completed, sonographic evidence of acute abnormality pulses pedal impression. With ultrasound or stenosis within the liver occurs anterior right lobe 5.3 x 4.3 x 3.3 cm. Chest x-ray from the emergency room pound moderate hiatal hernia with associated retrocardiac opacity. Otherwise no specific infiltrate, pleural effusion or pneumothorax is seen. The cardiac silhouette size is within normal limits and the osseous structures are intact. 06/17/2020 Last emesis-bile reported last night, with significant clinical improvement. This morning patient reports resolution of symptoms. Tender mid ep igastrium. Denies further nausea. Evaluated by surgery with upper GI/esophagram scheduled at 1:00. CT of abdomen and pelvis reporting no acute abnormality of the thorax or abdomen, large hiatal hernia progress since 2013 CT. Elevated d-dimer, VQ scan reported as normal. Denies any chest pain, palpitations or increasing shortness of breath. Denies lightheadedness, dizziness or focal deficits. Patient will be discharged home today in stable condition with guarded prognosis, pending esophagram results, tolerating diet advancement, final DC recommendations clearance for surgery. Exam: GENERAL: Alert and oriented 3, sitting up in bed, no acute distress HEENT: Head atraumatic, normocephalic, pupils equal, oral mucous membranes moist, neck supple, no JVD. LUNGS: Breath sounds clear to auscultation bilaterally and equal. No wheezes rales or rhonchi. HEART: Regular rate and rhythm without murmurs, rubs or gallops.S1S2 Normal ABDOMEN: Soft, mild mid-epigastric tenderness, normoactive bowel sounds. No guarding, no rebound. No masses appreciated. EXTREMITIES: Normal range of motion, no pitting or edema. No clubbing or cyanosis. NEUROLOGICAL: Cranial nerves II through XII grossly intact. No focal deficits. The impression and plan of care has been dictated as directed. : I performed a history and examination of this patient, discussed the same with the dictator. I agree with the dictator's note ,documented as a scribe. Any additional findings or plans will be noted. Patient Condition at Discharge: Stable Plan - Discharge Summary New Discharge Prescriptions: Continue amLODIPine BESYLATE/BENAZEPRIL [Lotrel 10-20 MG] 1 cap PO DAILY Esomeprazole Magnesium [NexIUM] 20 mg PO DAILY Citalopram Hydrobromide [CeleXA] 20 mg PO DAILY Levothyroxine Sodium [Synthroid] 125 mcg PO DAILY Vitamin D3(Unknown Dose) 1 tab PO DAILY Cetirizine HCl [Zyrtec] 10 mg PO DAILY Discharge Medication List Citalopram Hydrobromide [CeleXA] 20 mg PO DAILY 03/22/18 [History] Esomeprazole Magnesium [NexIUM] 20 mg PO DAILY 03/22/18 [History] amLODIPine BESYLATE/BENAZEPRIL [Lotrel 10-20 MG] 1 cap PO DAILY 03/22/18 [History] Cetirizine HCl [Zyrtec] 10 mg PO DAILY 06/15/20 [History] Levothyroxine Sodium [Synthroid] 125 mcg PO DAILY 06/15/20 [History] Vitamin D3(Unknown Dose) 1 tab PO DAILY 06/15/20 [History] Follow up Appointment(s)/Referral(s): Marco Antonio Potter MD [Medical Doctor] - 07/04/20 10:30 am Madelin Givens MD [STAFF PHYSICIAN] - 2 Weeks (stress test) Nirmal De Dios MD [Primary Care Provider] - 3 Days Patient Instructions/Handouts: Hiatal Hernia (DC)
[2020-06-17 15:39] VITALS: BP 139/82; PULSE 74; RESP 20; TEMP 98.7
[2020-06-17] MEDS: amLODIPine 10 MG TAB PO SCH (15:55)
--- NOTE | 2020-06-17 16:56 | FL ---
EXAMINATION TYPE: FL UGI air w esophagus DATE OF EXAM: 06/17/2020 COMPARISON: Correlation CT 06/16/2020 HISTORY: 65-year-old female large hiatal hernia, rule out obstruction. TECHNIQUE: A double contrast esophagram and UGI study is performed. Total fluoroscopy time: 2 minutes 18 seconds Total images: 74 FINDINGS: The swallowing mechanism is normal and hypopharyngeal anatomy is preserved. The cervical portion of t he esophagus has a normal course and caliber. Moderate tertiary peristalsis encountered along the distal third esophagus. No fixed narrowing, mucos al lesion, or suspicious filling defect is clearly identified. There is a moderate to large hiatal he rnia that causes some redundancy of the distal esophagus resulting in some delay in complete clearing of the esophagus. There is backfilling of the hiatal hernia when the patient is prone/supine and mild spontaneous gastr oesophageal reflux visualized. Mild diffuse gastric fold thickening within the herniated portion of the stomach. Small 1 cm and smaller circumscribed filling defects are present within the mid to distal stomach. The duodenal bulb, sweep, and proximal small bowel loops are unremarkable. IMPRESSION: 1. Slight delay in clearing of contrast from the distal esophagus due to the large hiatal hernia caus ing some redundancy and bending of the distal esophagus. No obstruction or stricture. 2. Moderate tertiary peristalsis distal esophagus. 3. Suspect mild gastritis involving the herniated portion of the stomach. 4. A few hyperplastic polyps noted within the mid to distal stomach also supports some chronic inflam mation. 5. Back filling of the hiatal hernia when the patient is supine and spontaneous mild gastroesophageal reflux.
== END 2020-06-17 17:49 ==
LOC: EC 18:27 → 1SOBS 20:56
PROVIDERS: ADMIT Family Medicine; ATTEND Family Medicine
DX: R10.816 Epigastric abdominal tenderness (principal); R10.13 Epigastric pain; R11.2 Nausea with vomiting, unspecified; M25.512 Pain in left shoulder; M54.9 Dorsalgia, unspecified; R07.9 Chest pain, unspecified; R94.31 Abnormal electrocardiogram [ECG] [EKG]; K44.9 Diaphragmatic hernia without obstruction or gangrene; R91.8 Other nonspecific abnormal finding of lung field; K21.9 Gastro-esophageal reflux disease without esophagitis; I10 Essential (primary) hypertension; E03.9 Hypothyroidism, unspecified; F32.9 Major depressive disorder, single episode, unspecified; R79.1 Abnormal coagulation profile; F41.9 Anxiety disorder, unspecified; K76.89 Other specified diseases of liver; Z79.899 Other long term (current) drug therapy; Z79.890 Hormone replacement therapy; Z88.2 Allergy status to sulfonamides; Z98.890 Other specified postprocedural states; Z90.710 Acquired absence of both cervix and uterus; Z86.69 Personal history of other diseases of the nervous system and sense organs; Z87.42 Personal history of other diseases of the female genital tract; Z83.3 Family history of diabetes mellitus; Z82.49 Family history of ischemic heart disease and other diseases of the circulatory system; Z83.49 Family history of other endocrine, nutritional and metabolic diseases; Z83.79 Family history of other diseases of the digestive system
CPT/HCPCS: 96365; 96372 ×2; 96375 ×2; 96376 ×2; 99285; 36415; 93005; 85379; 83880; 80053 ×3; 83690; 83735; 84484 ×2; 85025 ×3; 85610; 85730; 74246; 71046; 76705; 71260; 74160; 78582; G0378 ×3; A9540; A9567; J2270; J1644 ×2; J2405 ×2; J1170; J0131; J1885 ×2; C9113; Q9967

== ENCOUNTER → 2020-10-11 | Outpatient (CLI) | payer MEDICARE ==
[2020-10-11 14:35] LABS: HCT 39.6 % (37.2-46.3); MCH 25.9 pg (27.0-32.0); MCHC 30.3 g/dL (32.0-37.0); MCV 85.5 fL (80.0-97.0); Mean Platelet Volume 10.2 fL (9.5-12.2); Platelet Count 431 X 10*3/uL (140-440); RBC 4.63 X 10*6/uL (4.10-5.20); RDW 15.5 % (11.5-14.5); WBC 7.11 X 10*3/uL (4.50-10.00)
[2020-10-11 15:52] LABS: Chol/HDL Ratio 3.83; LDL Cholesterol,Calculated 129.8 mg/dL (0.0-131.0); VLDL Calculation 23.2 mg/dL (5.00-40.00)
[2020-10-11 16:20] LABS: African American GFR (CKD) 88.4 (60.0-200.0); Albumin 4.3 g/dL (3.80-4.90); Albumin/Globulin Ratio 2.05 (1.60-3.17); Anion Gap 10.3 mmol/L (4.00-12.00); BUN/Creat Ratio 17.5 Ratio (12.00-20.00); Calcium 9.6 mg/dL (8.7-10.3); Carbon Dioxide 23.7 mmol/L (21.6-31.8); Globulin 2.1 g/dL (1.6-3.3); Non-African American GFR(CKD) 76.3 (60.0-200.0); Potassium 4.3 mmol/L (3.5-5.5); Total Bilirubin 0.7 mg/dL (0.2-1.2); Total Protein 6.4 g/dL (6.2-8.2)
[2020-10-11 21:53] LABS: INR 0.94 (0.90-1.11); Partial Thromboplastin Time 25.1 sec (23.5-31.0); Prothrombin Time 10.3 sec (9.9-11.9)
== END | disposition home or self-care (01) ==
LOC: LABWHC1 10:43
PROVIDERS: ATTEND Nurse Practitioner
DX: E78.2 Mixed hyperlipidemia (principal); K44.9 Diaphragmatic hernia without obstruction or gangrene
CPT/HCPCS: 36415; 80053; 80061; 83036; 85027; 85610; 85730

== ENCOUNTER 2020-10-15 10:27 | Day surgery (SDC) | payer MEDICARE ==
[2020-10-10 10:07] VITALS: BMI 36.3
[2020-10-15] MEDS: LACTATED RINGERS 1,000 ML IV SCH ×2 (10:42→11:00)
[2020-10-15 11:00] VITALS: RESP 16; TEMP 97.6
[2020-10-15] MEDS ORDERED: LIDOCAINE 1% INJ 10MG/ML (20 ML MDV) ONE (11:12)
[2020-10-15] MEDS ORDERED: fentaNYL (PF) 50 MCG/ML 2 ML AMP ONE (11:12)
[2020-10-15] MEDS ORDERED: MIDAZOLAM 2 MG/2 ML VIAL ONE (11:12)
[2020-10-15] MEDS ORDERED: PROPOFOL 10 MG/ML 20 ML VIAL IV ONE (11:12)
--- NOTE | 2020-10-15 11:18 | P.GSHP ---
History of Present Illness H&P Date: 10/15/20 Chief Complaint: Hiatal hernia 65-year-old female with known hiatal hernia. Patient has had intermittent complaints of reflux, dysphagia, and occasional vomiting. Patient is currently scheduled for laparoscopic repair hiatal hernia [facility] in October. Here today for preoperative upper endoscopy. Past Medical History Past Medical History: Chest Pain / Angina, GERD/Reflux, Hypertension, Osteoarthritis (OA), Thyroid Disorder Additional Past Medical History / Comment(s): "hiatal hernia causing chest pain", ulcer yrs ago, History of Any Multi-Drug Resistant Organisms: None Reported Past Surgical History: Breast Surgery, Hysterectomy, Orthopedic Surgery, Tubal Ligation Additional Past Surgical History / Comment(s): RIGHT EYE REPAIR , bilateral breast reduction, laparotomy with the removal of endometrial cyst, Colonoscopy , left knee arthroscopy, EGD, champ cataracts Past Anesthesia/Blood Transfusion Reactions: No Reported Reaction Smoking Status: Never smoker - Past Family History Sister(s) Family Medical History: Diabetes Mellitus Additional Family Medical History / Comment(s): Brother with CAD Brother(s) Family Medical History: Congestive Heart Failure (CHF), Diabetes Mellitus, Myocardial Infarction ([place]) Mother Family Medical History: Diabetes Mellitus Father Family Medical History: Myocardial Infarction ([place]) Medications and Allergies Home Medications Medication Instructions Recorded Confirmed Type Citalopram Hydrobromide [CeleXA] 20 mg PO DAILY 03/22/18 10/15/20 History Esomeprazole Magnesium [NexIUM] 20 mg PO DAILY 03/22/18 10/15/20 History amLODIPine BESYLATE/BENAZEPRIL 1 cap PO DAILY 03/22/18 10/15/20 History [Lotrel 10-20 MG] Cetirizine HCl [Zyrtec] 10 mg PO DAILY PRN 06/15/20 10/15/20 History Levothyroxine Sodium [Synthroid] 125 mcg PO DAILY 06/15/20 10/15/20 History Cholecalciferol (Vitamin D3) 75 mcg PO DAILY 10/10/20 10/15/20 History [Vitamin D3 (3000 Iu)] Metoprolol Tartrate [Lopressor] 25 mg PO QAM 10/10/20 10/15/20 History Allergies Allergy/AdvReac Type Severity Reaction Status Date / Time Sulfa (Sulfonamide Allergy hives, Verified 10/15/20 10:48 Antibiotics) rapid heart rate Surgical - Exam Vital Signs Temp Pulse Resp BP Pulse Ox 97.6 F 71 16 130/72 97 10/15/20 10:59 10/15/20 10:59 10/15/20 10:59 10/15/20 10:59 10/15/20 10:59 Physical exam: General: Well-developed, well-nourished HEENT: Normocephalic, sclerae nonicteric Abdomen: Nontender, nondistended Extremities: No edema Neuro: Alert and oriented Assessment and Plan (1) GERD (gastroesophageal reflux disease) Narrative/Plan: Will proceed with upper endoscopy Current Visit: Yes Status: Acute Code(s): K21.9 - GASTRO-ESOPHAGEAL REFLUX DISEASE WITHOUT ESOPHAGITIS SNOMED Code(s): 914002763
--- NOTE | 2020-10-15 11:30 | P.PCN ---
Date of Procedure: 10/15/20 Procedure(s) Performed: Preoperative Dx: Hiatal hernia, reflux Postoperative Dx: Moderate to large hiatal hernia, multiple subcentimeter gastric polyps, mild gastritis Procedure: EGD with Bx Anesthesia: Sedation Endoscopist: Dr. Potter Specimens: Antrum, gastric polyps Endoscopic Procedure: The patient was on the endoscopy table in the left decubitus position. The Olympus gastroscope was inserted into the oropharynx and passed under direct visualization to the region of the third portion of the duodenum. From that point the scope was slowly withdrawn inspecting all surfaces carefully. There were no neoplastic inflammatory or polypoid lesions throughout the duodenum. The pylorus was widely patent. The stomach was carefully inspected. There was mild gastritis present. A biopsy of the antrum took place to rule out H. pylori. The patient had multiple small subcentimeter gastric polyps. The largest was sampled by cold biopsy. Retroflexion revealed a hiatal hernia. Moderate to large in size. The diaphragmatic hiatus was present at 42 cm while the GE junction was present at 33 cm. There was some tortuosity of the esophagus however the esophagus was free of inflammatory changes throughout. The patient was then taken to the recovery room in stable condition per anesthesia guidelines. Recommendations: Await biopsy results. Proceed with laparoscopic repair hiatal hernia.
[2020-10-15 11:45] VITALS: BP 127/69; PULSE 64
== END 2020-10-15 12:10 | disposition home or self-care (01) ==
LOC: ORWHC2ENDO 10:27
PROVIDERS: ATTEND Surgery
DX: K29.50 Unspecified chronic gastritis without bleeding (principal); K44.9 Diaphragmatic hernia without obstruction or gangrene; K31.7 Polyp of stomach and duodenum; K21.9 Gastro-esophageal reflux disease without esophagitis; I10 Essential (primary) hypertension; M19.90 Unspecified osteoarthritis, unspecified site; E07.9 Disorder of thyroid, unspecified; Z90.710 Acquired absence of both cervix and uterus; Z98.51 Tubal ligation status; Z98.42 Cataract extraction status, left eye; Z98.41 Cataract extraction status, right eye; Z98.890 Other specified postprocedural states; Z83.3 Family history of diabetes mellitus; Z82.49 Family history of ischemic heart disease and other diseases of the circulatory system; Z79.890 Hormone replacement therapy; Z79.899 Other long term (current) drug therapy; Z88.2 Allergy status to sulfonamides
CPT/HCPCS: 88305; 43239; J2250; J2001; J3010; J2704

== ENCOUNTER → 2021-06-02 | Outpatient (CLI) | payer MEDICARE ==
--- NOTE | 2021-06-02 12:18 | FL ---
EXAMINATION TYPE: FL UGI DATE OF EXAM: 06/02/2021 COMPARISON: NONE HISTORY: Dysphasia TECHNIQUE: A single contrast UGI study is performed. A total of 1 minute and 24 seconds of fluorosc opic time was utilized during procedure and 50 images obtained. FINDINGS: Contrast was swallowed without difficulty and passed and the esophagus without delay. There is a smal l hiatal hernia with no significant obstruction. Mild gastroesophageal reflux. No filling defect with in the upper esophagus. No filling defects or evidence of ulcer within the stomach. Duodenal bulb and sweep unremarkable. IMPRESSION: 1. Small hiatal hernia.
== END | disposition home or self-care (01) ==
LOC: RADUSWWP 09:51
PROVIDERS: ATTEND Surgery
DX: K44.9 Diaphragmatic hernia without obstruction or gangrene (principal)
CPT/HCPCS: 74240

== ENCOUNTER → 2021-10-28 | Outpatient (CLI) | payer MEDICARE ==
[2021-10-28 14:13] VITALS: BP 134/81; PULSE 79; RESP 18; TEMP 98
--- NOTE | 2021-10-28 15:17 | P.HPOB ---
History of Present Illness H&P Date: 10/28/21 Chief Complaint: The patient is here for her routine gynecologic exam and ma mmogram. This is a 66-year-old with an LMP of 1996. The patient is status post vaginal hysterectomy and rectocele repair for benign reasons. The patient is without gynecologic complaints. Review of Systems The patient has lost 21 pounds over the last 2.5 years. She denies respiratory, cardiac, or G.I. problems. Skin: She has had patches of red areas in the groin areas extending to the lower abdomen. She has not seen anybody for this. Past Medical History Past Medical History: Chest Pain / Angina, GERD/Reflux, Hypertension, Osteoarthritis (OA), Thyroid Disorder Additional Past Medical History / Comment(s): Hiatal hernia(surgically repaired), ulcer yrs ago. Hypothyroidism. 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 History of Any Multi-Drug Resistant Organisms: None Reported Past Surgical History: Breast Surgery, Hysterectomy, Orthopedic Surgery, Tubal Ligation Additional Past Surgical History / Comment(s): RIGHT EYE REPAIR , bilateral breast reduction, laparotomy with the removal of endometrial cyst, [id number](next after 10yr) , left knee arthroscopy, EGD, champ cataracts. Hiatal hernia repair. Past Anesthesia/Blood Transfusion Reactions: No Reported Reaction Past Psychological History: No Psychological Hx Reported Smoking Status: Never smoker Past Alcohol Use History: Rare (15 per year) Past Drug Use History: None Reported Additional History: She has been since 1984. 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 - Past Family History Sister(s) Family Medical History: Diabetes Mellitus Additional Family Medical History / Comment(s): Brother with CAD Brother(s) Family Medical History: Congestive Heart Failure (CHF), Diabetes Mellitus, Myocardial Infarction ([place]) Mother Family Medical History: Diabetes Mellitus Father Family Medical History: Myocardial Infarction ([place]) Daughter(s) Family Medical History: Thyroid Disorder Additional Family Medical History / Comment(s): 1 daughter has a hiatal hernia and another daughter has thyroid problems. Medications and Allergies Home Medications Medication Instructions Recorded Confirmed Type Citalopram Hydrobromide [CeleXA] 20 mg PO DAILY 03/22/18 10/28/21 History amLODIPine BESYLATE/BENAZEPRIL 1 cap PO DAILY 03/22/18 10/28/21 History [Lotrel 10-20 MG] Cetirizine HCl [Zyrtec] 10 mg PO DAILY PRN 06/15/20 10/28/21 History Levothyroxine Sodium [Synthroid] 125 mcg PO DAILY 06/15/20 10/28/21 History Cholecalciferol (Vitamin D3) 75 mcg PO DAILY 10/10/20 10/28/21 History [Vitamin D3 (3000 Iu)] Metoprolol Tartrate [Lopressor] 25 mg PO QAM 10/10/20 10/28/21 History Omeprazole 20 mg PO DAILY 10/28/21 10/28/21 History Allergies Allergy/AdvReac Type Severity Reaction Status Date / Time Sulfa (Sulfonamide Allergy hives, Verified 10/28/21 14:07 Antibiotics) rapid heart rate Exam Vital Signs Temp Pulse Resp BP Pulse Ox 10/28/21 14:10 98 F 79 18 134/81 98 Intake and Output 10/28/21 10/28/21 10/28/21 06:59 14:59 22:59 Other: Weight 111.13 kg Height 5 feet 9 inches, weight 245 pounds, BMI 36.2. This is a well-developed well-nourished white female who is alert and oriented times 3 in no acute distress. HEENT: Within normal limits. NECK: Supple without mass or thyromegaly. CHEST AND LUNGS: Clear to auscultation. HEART: Regular rate and rhythm. BREASTS: Are without mass or discharge. Breasts are consistent with previous breast reduction surgery. AXILLARY EXAM: Negative for adenopathy. BACK: Negative for CVA tenderness. ABDOMEN: Soft, nontender, without palpable masses. PELVIC EXAM: External genitalia appears normal with mild atrophy. Vagina appears normal with mild atrophy. There is no evidence of prolapse. Bimanual examination is negative for mass or tenderness. RECTAL EXAM: Rectovaginal exam is negative for mass or tenderness and is negative for occult blood. EXTREMITIES: Nontender. Skin: There are red scaly patches in the bilateral groin areas extending into the lower abdomen patient states she has had these for some time and has not had them evaluated. IMPRESSION: 1. 66-year-old menopausal female who is status post vaginal hysterectomy for benign reasons, with normal gynecologic exam. 2. Dermatologic condition in the groin areas extending to the mons pubis and lower abdomen. PLAN: 1. Pap smears have been discontinued. 2. Self breast awareness was discussed with the patient. We have also discussed symptoms associated with inflammatory breast cancer. 3. Screening mammogram will be done today. 4. Osteoporosis prevention was discussed. I have stressed the importance of adequate calcium, vitamin D and regular exercise. Recommended amounts of calcium and vitamin D were also discussed. It has been approximate 7 years since her last bone density test. I have recommended bone density testing and the order slip was given to the patient for this. 5. I have recommended that she see a cementer machine applicator for evaluation of her skin condition in the groin and mons pubis areas. These patches have some features consistent with psoriatic lesions. She states she will see her cementer machine applicator for this. 6. She was advised to return in one year for her annual well woman exam.
--- NOTE | 2021-10-30 11:05 | MM ---
Reason for exam: screening (asymptomatic). Last mammogram was performed 2 years and 4 months ago. History: Patient is postmenopausal. Reductions of both breasts, 2002. Physical Findings: A clinical breast exam by your physician is recommended on an annual basis and results should be correlated with mammographic findings. MG 3D Screening Mammo W/Cad Bilateral CC and MLO view(s) were taken. Prior study comparison: June 28, 2019, bilateral MG 3d screening mammo w/cad. March 22, 2018, bilateral MG 3d screening mammo w/cad. There are scattered fibroglandular densities. No significant changes when compared with prior studies. ASSESSMENT: Benign, BI-RAD 2 RECOMMENDATION: Routine screening mammogram of both breasts in 1 year.
== END ==
LOC: WWCWWP 13:49
PROVIDERS: ATTEND Obstetrics & Gynecology
DX: Z12.31 Encounter for screening mammogram for malignant neoplasm of breast (principal); Z01.419 Encounter for gynecological examination (general) (routine) without abnormal findings; L98.8 Other specified disorders of the skin and subcutaneous tissue; I10 Essential (primary) hypertension; M19.90 Unspecified osteoarthritis, unspecified site; E03.9 Hypothyroidism, unspecified; K21.9 Gastro-esophageal reflux disease without esophagitis; Z79.890 Hormone replacement therapy; Z90.710 Acquired absence of both cervix and uterus; Z88.2 Allergy status to sulfonamides
CPT/HCPCS: 77063; 77067

== ENCOUNTER 2021-11-05 07:07 | Day surgery (SDC) | payer MEDICARE ==
[2021-11-04 08:37] VITALS: BMI 34.9
[~2021-11-05 07:07] MED LIST: TETRACAINE 0.5% OPHTH (PF) DROPS 4 ML BTL OP PRN
[2021-11-05] MEDS ORDERED: LACTATED RINGERS 1,000 ML IV SCH (07:11)
[2021-11-05] MEDS ORDERED: LIDOCAINE 1% (10MG/ML) FOR IV START INTRADERMA PRN (07:11)
[2021-11-05] MEDS: PILOCARPINE 2% OPHTH DROPS 15 ML BTL OP PRN ×3 (07:23→07:33)
[2021-11-05 07:28] VITALS: TEMP 96.7
[2021-11-05] MEDS ORDERED: BALANCED SALT IRRIG SOLN COMB2 500 ML INTRAOCULA ONE ×2 (07:28→08:02)
[2021-11-05] MEDS ORDERED: LIDOCAINE 1% INJ 10MG/ML (20 ML MDV) SQ ONE (07:29)
[2021-11-05] MEDS ORDERED: EPINEPHrine (PF) 1 MG/ML AMP IRRIGATION ONE (07:30)
[2021-11-05] MEDS: TIMOLOL 0.5% OPHTH DROPS 5 ML BTL OP PRN ×2 (07:34→08:02)
[2021-11-05] MEDS: MOXIFLOXACIN HCL 0.5% DROPS 3 ML BTL OP PRN ×2 (07:34→08:02)
[2021-11-05] MEDS ORDERED: EPINEPHrine (PF) 0.3 ML in BALANCED SALT IRRIG SOLN COMB2 500 ML IRRIGATION ONE ×4 (07:35)
[2021-11-05] MEDS ORDERED: DUOVISC KIT (GREEN BOX) INTRAOCULA ONE ×2 (07:40→08:02)
[2021-11-05] MEDS ORDERED: MIDAZOLAM 2 MG/2 ML VIAL ONE (07:46)
[2021-11-05] MEDS ORDERED: fentaNYL (PF) 50 MCG/ML 2 ML AMP ONE (07:46)
[2021-11-05] MEDS ORDERED: LIDOCAINE 1% PF 10 MG/ML (5 ML AMP) MISCELLANE ONE ×2 (07:52→08:02)
--- NOTE | 2021-11-05 08:12 | P.OP ---
Date of Procedure: 11/05/21 Preoperative Diagnosis: POAG Postoperative Diagnosis: same Procedure(s) Performed: goniotomy OD Implants: none Anesthesia: MAC Surgeon: Prem May Pathology: none sent Condition: stable Disposition: same day Indications for Procedure: better glaucoma control Operative Findings: No complications
[2021-11-05 08:24] VITALS: RESP 16
[2021-11-05 08:33] VITALS: BP 112/71; PULSE 63
--- NOTE | 2021-11-05 19:48 | OP ---
OPERATIVE REPORT PROCEDURE DATE: November 05, 2021. PROCEDURES: Goniotomy of the right eye. PREOPERATIVE DIAGNOSIS: Primary open-angle glaucoma. POSTOPERATIVE DIAGNOSIS: Primary open angle glaucoma. SURGEON: Dr. Prem May. ANESTHESIA: Topical. ESTIMATED BLOOD LOSS: Less than 5 mL. SPECIMEN: Taken: None. NARRATIVE: After obtaining the appropriate consent, the patient was brought to the operating room, there she was placed on cardiac monitoring prepped and draped in the usual sterile manner. She was approached from her right temporal side and at the 9 o'clock position, a 2.5 mm keratome was used to create a self-sealing corneal flap incision. Through this opening, 1% Xylocaine MPF 50:50 mix with balanced salt solution was injected into the anterior chamber. This was followed by stabilization of the anterior chamber with Viscoat. The patient was then asked to turn her head approximately 45 degrees toward her left, maintaining gaze in the general direction and a gonio prism was placed on the patient's cornea. Using an inside-out technique a [place] dual blade goniotomy knife was placed in the nasal trabecular meshwork and approximately 5-1/2 to 6 hours of trabecular meshwork was removed from the nasal side of the patient's eye. Irrigation/ aspiration was used to remove the remaining viscoelastic from the anterior chamber of the eye. The eye was brought to slightly above normal intra-ocular pressure and sealed with stromal hydration. She then received 2 drops of 0.5% timolol followed by 2 drops of moxifloxacin. She was then lightly patched and shielded in the usual manner. There were no complications from the procedure. She tolerated the procedure well and was returned to outpatient recovery in good condition. MMODL / IJN: [id number] /
== END 2021-11-05 09:07 | disposition home or self-care (01) ==
LOC: OR 07:07
PROVIDERS: ATTEND Ophthalmology
DX: H40.1110 Primary open-angle glaucoma, right eye, stage unspecified (principal); I10 Essential (primary) hypertension; E07.9 Disorder of thyroid, unspecified; K21.9 Gastro-esophageal reflux disease without esophagitis; Z88.2 Allergy status to sulfonamides; Z79.899 Other long term (current) drug therapy
CPT/HCPCS: 65820; J2250; J0171; J2001; J3010

== ENCOUNTER → 2022-05-08 | Outpatient (CLI) | payer MEDICARE | END | disposition home or self-care (01) | LOC: LABWHC1 13:15 | PROVIDERS: ATTEND Family Medicine | DX: Z53.9 Procedure and treatment not carried out, unspecified reason (principal) ==

== ENCOUNTER → 2022-05-08 | Outpatient (CLI) | payer MEDICARE ==
[2022-05-08 18:33] LABS: Basophils # (A) 0.09 X 10*3/uL (0.00-0.10); Basophils % (A) 1.3 %; Eosinophils # (A) 0.16 X 10*3/uL (0.04-0.35); Eosinophils % (A) 2.4 %; HCT 44.5 % (37.2-46.3); HGB 14.5 g/dL (12.0-15.0); Immature Grans, Automated 0.4 %; Lymphocytes # (A) 1.88 X 10*3/uL (0.90-5.00); Lymphocytes % (A) 27.8 %; MCH 30.7 pg (27.0-32.0); MCHC 32.6 g/dL (32.0-37.0); MCV 94.1 fL (80.0-97.0); Mean Platelet Volume 10.1 fL (9.5-12.2); Monocytes % (A) 10.4 %; NRBC Per 100 WBC 0 /100 WBCS (0.0-0.0); Neutrophils % (A) 57.7 %; Platelet Count 348 X 10*3/uL (140-440); RBC 4.73 X 10*6/uL (4.10-5.20); RDW 12.8 % (11.5-14.5); WBC 6.76 X 10*3/uL (4.50-10.00)
[2022-05-08 19:37] LABS: African American GFR (CKD) 90.5 (60.0-200.0); Anion Gap 13.1 mmol/L (10.00-18.00); BUN/Creat Ratio 15.98 Ratio (12.00-20.00); Blood Urea Nitrogen 12.4 mg/dL (9.0-27.0); Calcium 9.6 mg/dL (8.7-10.3); Carbon Dioxide 21.1 mmol/L (20.0-27.5); Non-African American GFR(CKD) 78.1 (60.0-200.0); Potassium 4.4 mmol/L (3.5-5.5)
[2022-05-08 20:24] LABS: INR 0.94 (0.90-1.11); Prothrombin Time 10.4 sec (9.9-11.9)
== END | disposition home or self-care (01) ==
LOC: LABPAT 13:13
PROVIDERS: ATTEND Orthopaedic Surgery
DX: Z01.812 Encounter for preprocedural laboratory examination (principal); M17.11 Unilateral primary osteoarthritis, right knee; Z22.322 Carrier or suspected carrier of Methicillin resistant Staphylococcus aureus
CPT/HCPCS: 80048; 85025; 85610; 87070

== ENCOUNTER 2022-05-12 13:03 | Observation (INO) | payer MEDICARE ==
[2022-05-08 10:31] VITALS: BMI 37.7
--- NOTE | 2022-05-11 12:53 | P.HPOR ---
History of Present Illness H&P Date: 05/11/22 Chief Complaint: Right knee pain The patient is a 66-year-old retired female who presents with progressive right knee pain for the past several years worsening recently. She's having diffuse pain, swelling, stiffness along with giving way and buckling. It bothers her more with weightbearing activities, however she has night symptoms. She tried medications along with injections with only partial temporary relief. Review of Systems As per HPI Past Medical History Past Medical History: Chest Pain / Angina, GERD/Reflux, Hypertension, Osteoarthritis (OA), Thyroid Disorder Additional Past Medical History / Comment(s): Hiatal hernia(surgically repaired), ulcer yrs ago. History of Any Multi-Drug Resistant Organisms: None Reported Past Surgical History: Breast Surgery, Hysterectomy, Orthopedic Surgery, Tubal Ligation Additional Past Surgical History / Comment(s): RIGHT EYE REPAIR , bilateral breast reduction, laparotomy with the removal of endometrial cyst, [id number](next after 10yr) , left knee arthroscopy, EGD, champ cataracts. Hiatal hernia repair. Past Anesthesia/Blood Transfusion Reactions: No Reported Reaction Smoking Status: Never smoker - Past Family History Sister(s) Family Medical History: Diabetes Mellitus Additional Family Medical History / Comment(s): Brother with CAD Brother(s) Family Medical History: Myocardial Infarction ([place]) Mother Family Medical History: Diabetes Mellitus Father Family Medical History: Myocardial Infarction ([place]) Daughter(s) Family Medical History: Thyroid Disorder Additional Family Medical History / Comment(s): 1 daughter has a hiatal hernia and another daughter has thyroid problems. Medications and Allergies Home Medications Medication Instructions Recorded Confirmed Type Citalopram Hydrobromide [CeleXA] 20 mg PO QAM 03/22/18 05/08/22 History amLODIPine BESYLATE/BENAZEPRIL 1 cap PO QAM 03/22/18 05/08/22 History [Lotrel 10-20 MG] Levothyroxine Sodium [Synthroid] 125 mcg PO QAM 06/15/20 05/08/22 History Cholecalciferol (Vitamin D3) 75 mcg PO DAILY 10/10/20 05/08/22 History [Vitamin D3 (3000 Iu)] Metoprolol Tartrate [Lopressor] 25 mg PO QAM 10/10/20 05/08/22 History Omeprazole 20 mg PO QAM 10/28/21 05/08/22 History Allergies Allergy/AdvReac Type Severity Reaction Status Date / Time Sulfa (Sulfonamide Allergy hives, Verified 05/08/22 10:20 Antibiotics) rapid heart rate Physical Examination - Knee right Appearance: effusion Effusion grade: grade 2 Valgus alignment in stance: 10 degrees Tenderness with palpation: anterior, lateral Pain: with flexion Gait: limping ROM: extension: -15 degrees ROM: flexion: 110 degrees Crepitus with motion: Yes Strength: extension: 5/5 Strength: flexion: 5/5 Patella exam: Q angle 10 degrees Meniscal tests: lateral meniscal tests: positive, lateral joint line pain: positive Results The patient is a well-developed female approximately 5 foot 9, 236 pounds of endomorphic habitus. HEENT exam is nonfocal, neck is supple. She has painless passive motion of the right hip. Straight leg raise is negative. Her distal neurovascular appears intact in the right lower extremity. - Diagnostic results Knee x-ray: image reviewed (3 views of the right knee obtaining our office show severe lateral and patellofemoral compartment there with subchondral sclerosis and [id number] changes.) Assessment and Plan Assessment: Right knee severe lateral and patellofemoral compartment osteoarthrosis Plan: I talked to the patient later regarding her condition along with treatment options. At this point is quite limited because of pain related to her osteoporosis despite previous conservative measures. After thorough discussion, she opted to proceed with surgery. We will plan to proceed with right total knee arthroplasty. We will institute DVT prophylaxis postop fully. Risks and benefits were discussed at length in layman's terms. Time with Patient: Less than 30
[~2022-05-12 13:03] MED LIST changes: +ACETAMINOPHEN TAB 500 MG TAB PO PRN; +DEXAMETHASONE SOD PHOSPHATE 4 MG/ML 1 ML VIAL IV ONE; +HYDROmorphone 0.5 MG/0.5 ML SYRINGE IVP PRN; +MELOXICAM 7.5 MG TAB PO PRN; +ONDANSETRON 4 MG/2 ML VIAL IVP ONE; -TETRACAINE 0.5% OPHTH (PF) DROPS 4 ML BTL OP PRN; +TRANEXAMIC ACID IN NACL,ISO-OS 1,000 MG in SALINE 1 100ML.BAG IVPB PRN
[2022-05-12] MEDS: LACTATED RINGERS 1,000 ML IV SCH (13:54)
[2022-05-12] MEDS ORDERED: MIDAZOLAM 2 MG/2 ML VIAL IVP ONE (14:11)
[2022-05-12] MEDS ORDERED: fentaNYL (PF) 50 MCG/ML 2 ML AMP IVP ONE (14:11)
[2022-05-12] MEDS ORDERED: MIDAZOLAM 2 MG/2 ML VIAL ONE (15:19)
[2022-05-12] MEDS ORDERED: ROPIVACAINE 5 MG/ML 30 ML VIAL ONE (15:19)
[2022-05-12] MEDS ORDERED: fentaNYL (PF) 50 MCG/ML 2 ML AMP ONE (15:19)
[2022-05-12] MEDS ORDERED: SODIUM CHLORIDE 0.9% (PF) 10 ML VIAL ONE (15:19)
[2022-05-12] MEDS ORDERED: TRANEXAMIC ACID IN NACL,ISO-OS 1,000 MG/100 ML BAG ONE (15:19)
[2022-05-12] MEDS ORDERED: PROPOFOL 10 MG/ML 20 ML VIAL IV ONE (15:19)
[2022-05-12] MEDS ORDERED: ROPIVACAINE 0.2%-NS ON-Q PUMP 1,090 MG, EMPTY PAIN BALL 1 EACH MISCELLANE PRN (15:20)
[2022-05-12] MEDS ORDERED: HYDROmorphone 0.5 MG/0.5 ML SYRINGE IVP PRN (15:52)
[2022-05-12] MEDS ORDERED: NALOXONE 0.4 MG/ML 1 ML VIAL IV PRN (15:52)
[2022-05-12] MEDS ORDERED: HYDROcodone/APAP 5-325MG 1 EACH TAB PO PRN (15:52)
--- NOTE | 2022-05-12 16:20 | P.ANPRN ---
Procedure Note - Anesthesia - Nerve Block Performed Right Adductor Canal Time Out Performed: Yes (14:10) Date of Procedure: 05/12/22 Procedure Start Time: 14:10 Procedure Stop Time: :19 Location of Patient: PreOp Indication: Acute Post-Operative Pain, Requested by Surgeon (Dr Leyva) Sedation Type: Sedate with meaningful contact maintained Preparation: Sterile Prep, Sterile Dressing Position: Supine Catheter: Indwelling Needle Types: Pajunk Needle Gauge: 21 Ultrasound used to visualize needle placement: Yes Ultrasound used to observe medication spread: Yes Injectate: 0.5% Ropivacaine (see comment for volume) (15cc) Blood Aspirated: No Pain Paresthesia on Injection Noted: No Resistance on Injection: Normal Image Stored and Saved: Yes Events: Uneventful and Well Tolerated
--- NOTE | 2022-05-12 16:22 | P.ANPRN ---
Procedure Note - Anesthesia - Nerve Block Performed Right iPack Time Out Performed: Yes Date of Procedure: 05/12/22 Procedure Start Time: 14:20 Procedure Stop Time: 14:25 Location of Patient: PreOp Indication: Acute Post-Operative Pain, Requested by Surgeon (Dr Leyva) Sedation Type: Sedate with meaningful contact maintained Preparation: Sterile Prep Position: Supine Catheter: None Needle Types: Pajunk Needle Gauge: 21 Ultrasound used to visualize needle placement: Yes Ultrasound used to observe medication spread: Yes Injectate: 0.5% Ropivacaine (see comment for volume) (15cc +5cc PF Normal saline) Blood Aspirated: No Pain Paresthesia on Injection Noted: No Resistance on Injection: Normal Image Stored and Saved: Yes Events: Uneventful and Well Tolerated
[2022-05-12] MEDS ORDERED: LACTATED RINGERS 1,000 ML IV ONE (17:21)
--- NOTE | 2022-05-12 17:33 | P.OP ---
Date of Procedure: 05/12/22 Preoperative Diagnosis: Right knee severe tricompartmental osteoarthritis Postoperative Diagnosis: Same Procedure(s) Performed: Right total knee arthroplastycementedposterior stabilized Implants: Depuy Attune size 5 cemented femoral component, size 4 cemented tibial component, 9 mm articular surface, 35 mm cemented patellar component. This is a posterior stabilized implant. Anesthesia: regional, spinal Surgeon: Prieto Leyva [employer] Crewmember #1: Khari Yi Estimated Blood Loss (ml): 50 Pathology: other (Bone fragments) Condition: stable Disposition: PACU Indications for Procedure: The patient is a 67-year-old female who presents with progressive right knee pain secondary to osteoarthrosis despite conservative measures. A discussion of the risks and benefits of operative intervention versus continued conservative measures was made with patient. She opted to proceed with surgery. Operative risks to include infection, neurovascular injury, development of blood clots, possible component loosening/failure and need for subsequent procedures was discussed. Informed consent was obtained. Operative Findings: As below Description of Procedure: The patient was brought to the operating room, and after induction of spinal anesthesia the right lower extremity was prepped and draped in a normal fashion. The tourniquet was inflated to 270 mm marker. A longitudinal incision extending 3 finger breaths above the superior pole of patella extending to the medial aspect the tibial tubercle was then made. The skin and subcutaneous tissues were divided sharply. Electrocautery was used for hemostasis. A medial parapatellar arthrotomy was performed. The medial soft tissues to include the superficial and deep portions of the medial collateral ligament were elevated subperiosteally. The patella was everted. A portion of the retropatellar fat pad was excised sharply. The anterior cruciate ligament was sacrificed. Blunt retractors were placed. A starting hole was made in the distal femur 1 cm anterior to the posterior cruciate ligament origin. An intramedullary femoral guide was then inserted planning on 5 valgus distal cut with 9 mm distal r esection. The cutting block was pinned in place. The distal cut was then made. The posterior referencing sizing guide was utilized. I felt size 5 was most appropriate. 3 of external rotation was built into the system and verified off the trans-epicondylar axis and the posterior condyles. The cutting block was pinned in place. The anterior, posterior, and chamfer cuts then made. Bone fragments were removed. The intercondylar guide was placed and the notch cut was made with a sagittal saw. The bone block was removed in one fragment. The trial component was then placed. There is good anterior to posterior and medial to lateral fit. The distal peg holes were drilled. The trial component was removed. Attention was then paid towards preparing the proximal tibia. An extra medullary guide was utilized in line with the tibial shaft and second metatarsal distally. I planned on 7 mm resection from the medial compartment. The cutting block was pinned in place. The proximal tibial cut was then made. The bone was removed in one fragment. The remnants of the medial and lateral menisci were excised at the capsular junction with electrocautery. The tibia sized most appropriately at size 4. The trial femoral and tibial components were placed along with a 9 mm articular surface. I was able to obtain full flexion and extension with internal and external rotation. After several flexion and extension cycles, the tibial rotation was marked with electrocautery line with the medial one third of the tibial tubercle. Attention was then paid towards preparing the patella. A patella reamer was utilized taking stem to 14 mm of bone stock. A good flush cut was made. The patella sized most appropriately 35 mm. The peg holes were drilled. The trial components placed. I had good patellofemoral tracking with no hands technique. The trial components were then removed. The tibia was prepared in the appropriate rotation with appropriate drill and keel punch. The posterior osteophytes were removed with a curved osteotome. The flexion and extension gaps were checked and felt to be symmetric at 9 mm. A trial components were then removed. The bony surfaces were prepared with pulsatile lavage and dried. The tibial component was then cemented place was fully seated. Excess cement was removed. The femoral component cemented place and was fully seated. Excess cement was removed. The trial 9 mm articular surface was placed and the knee was put in full extension. The patella component was cemented place. After the cement had sufficiently hardened, the knee was again taken through a range of motion. Again I was able to obtain full flexion and extension with varus and valgus stress. The trial 9 mm articular surface was removed and the final one inse rted. This was fully seated. Care was taken to avoid any soft tissue interposition. Pulsatile lavage was again utilized. The medial parapatellar arthrotomy was closed with #2 Ethibond suture. The tourniquet was deflated with approximately 60 minutes total tourniquet time. Final hemostasis was obtained with the cautery. There was minimal bleeding therefore a deep drain was not placed. The subcutaneous tissues were reapproximated with interrupted 2-0 Vicryl sutures. The skin was reapproximated with 3-0 subcuticular strata fix suture. Skin tape and adhesive was applied. A sterile dressing was applied. The patient was awoken from sedation and transferred to recovery room in good condition. Blood loss was estimated at 50 mL. No complications were incurred. Sponge and needle counts were correct at the end of the case. Jatinder GOODSON assisted during the major components of this case to include exposure, bone resection, implantation, and closure.
--- NOTE | 2022-05-12 18:10 | XR ---
EXAMINATION TYPE: XR knee limited RT DATE OF EXAM: 05/12/2022 5:53 PM INDICATION: Patient age:Female; 67 years old; Reason for study: Evaluation for Postop abnormality and alignment; PHH. COMPARISON: None. TECHNIQUE: The Right knee(s) was examined in 2 projections. Frontal, lateral. FINDINGS: Status post left total knee arthroplasty changes with hardware in appropriate alignment a nd intact. No evidence of fracture. Subcutaneous lucencies and lucencies within the joint consistent with surgical changes. IMPRESSION: Status post total knee arthroplasty changes with hardware intact and appropriate alignment. No fractu res identified.
[2022-05-12] MEDS: SENNOSIDES-DOCUSATE SODIUM 1 EACH TAB PO SCH (20:35)
[2022-05-13] MEDS: HYDROcodone/APAP 7.5-325MG 1 EACH TAB PO PRN ×4 (00:15→21:25)
[2022-05-13] MEDS: HYDROmorphone 0.5 MG/0.5 ML SYRINGE IVP PRN ×2 (04:52→08:28)
[2022-05-13] MEDS: LACTATED RINGERS 1,000 ML IV SCH (05:58)
--- NOTE | 2022-05-13 07:45 | P.PN ---
Progress Note - Text The patient is status post right adductor canal catheter placement. The catheter was placed for postoperative pain control, status post total right knee arthroplasty. The patient has no complaints of right lower extremity numbness or weakness. Patient's VAS score is 5-6-10. Assessment: Patient's adductor canal catheter is in place and seems to be working.. Plan, Increase the ropivacaine 0.2% to 10 ML's per hour. She was also receiving supplemental Dilaudid. The rate of the ropivacaine infusion will be adjusted as needed.
[2022-05-13 08:56] LABS: Basophils # (A) 0.02 X 10*3/uL (0.00-0.10); Basophils % (A) 0.2 %; Eosinophils # (A) 0 X 10*3/uL (0.04-0.35); Eosinophils % (A) 0 %; HCT 35.4 % (37.2-46.3); HGB 12.1 g/dL (12.0-15.0); Immature Grans, Automated 0.3 %; Lymphocytes # (A) 0.86 X 10*3/uL (0.90-5.00); Lymphocytes % (A) 7.3 %; MCH 31.4 pg (27.0-32.0); MCHC 34.2 g/dL (32.0-37.0); MCV 91.9 fL (80.0-97.0); Mean Platelet Volume 9.9 fL (9.5-12.2); Monocytes # (A) 0.97 X 10*3/uL (0.20-1.00); Monocytes % (A) 8.2 %; NRBC Per 100 WBC 0 /100 WBCS (0.0-0.0); Neutrophils # (A) 9.94 X 10*3/uL (1.80-7.70); Platelet Count 316 X 10*3/uL (140-440); RBC 3.85 X 10*6/uL (4.10-5.20); RDW 12.9 % (11.5-14.5); WBC 11.83 X 10*3/uL (4.50-10.00)
[2022-05-13] MEDS: RIVAROXABAN 10 MG TAB PO SCH (09:31)
[2022-05-13] MEDS ORDERED: ONDANSETRON 4 MG/2 ML VIAL IVP PRN (10:21)
--- NOTE | 2022-05-13 11:20 | P.PN ---
Subjective Progress Note Date: 05/13/22 Principal diagnosis: Right knee osteoarthritis Patient was seen at bedside this morning resting the semirecumbent position with a dressing of right knee. Patient's was at bedside during the encounter. Patient says she has benefited nauseous and this started when she got up out of bed at night to use the bathroom. Patient says she did end up vomiting. Patient says she did do well with physical therapy this morning is able to walk on the mei and up-and-down steps. Patient says she does have a walker for home. Patient says her pain is a 4/10 currently, but she just received pain medication. Patient does not feel comfortable going home today feels that she sustained one more night for pain control. Patient denies chest pain, fever, shortness of breath, change in vision, loss of bowel/bladder control. Objective - Vital Signs Vital signs: Vital Signs Temp 98.7 F 05/13/22 07:35 Pulse 83 05/13/22 07:35 Resp 16 05/13/22 09:57 BP 130/75 05/13/22 07:35 Pulse Ox 91 L 05/13/22 07:35 FiO2 Intake & Output 05/12/22 05/13/22 05/13/22 18:59 06:59 18:59 Intake Total 800 Output Total 50 Balance 750 Weight 117.48 kg Intake: IV 800 Output: Estimated Blood Loss 50 Other: Voiding Method Toilet # Voids 1 - Exam Right knee: Incision is clean, dry, and intact. The exofin fusion tape is in good condition. There is minimal soft tissue swelling and ecchymosis surrounding the medial and lateral aspects of the incision. Calf is soft, no tenderness with palpation. Plantar flexion, dorsiflexion, EHL, FHL are intact. Sensory exam to light touch throughout the extremity is intact, dorsal pedis pulses 2+. - Labs CBC & Chem 7: 05/13/22 05:49 Labs: Abnormal Lab Results - Last 24 Hours (Table) 05/13/22 Range/Units 05:49 WBC 11.83 H (4.50-10.00) X 10*3/uL RBC 3.85 L (4.10-5.20) X 10*6/uL Hct 35.4 L (37.2-46.3) % Neutrophils # 9.94 H (1.80-7.70) X 10*3/uL Lymphocytes # 0.86 L (0.90-5.00) X 10*3/uL Eosinophils # 0 L (0.04-0.35) X 10*3/uL Assessment and Plan Assessment: 1. Right knee osteoarthritis - Postoperative day 1 status post right total knee arthroplasty Plan: 1. Right knee osteoarthritis - right total knee arthroplasty performed yesterday, 05/12/2022. Patient stable at bedside this morning. Zofran has been ordered. Patient will stay 1 more night for pain control. Plan for discharge home tomorrow with health services. 2. Appreciate medical management 3. Pain management - Elmer; IV meds only as necessary 4. DVT prophylaxis - Xarelto 5. GI prophylaxis - senna 6. PT/OT - weightbearing as tolerated with walker 7. Encourage incentive spirometer use 8. Discharge planning - plan for home with health services tomorrow, , 05/14/2022 Time with Patient: Less than 30
[2022-05-13] MEDS: traMADol 50 MG TAB PO PRN ×2 (12:13→17:26)
--- NOTE | 2022-05-13 14:52 | P.CONS ---
History of Present Illness - Reason for Consult Consult date: 05/13/22 manage HTN, thyroid - History of Present Illness Praveena is a 67-year-old white female with known osteoarthritis of the right knee. She underwent right total knee arthroplasty with Dr. Leyva yesterday afternoon. She has seen in consultation for medical management. She's complaining of significant right knee pain at this time. She denies any chest pains pressures shortness of breath, nausea vomiting.She is tolerating a regular diet. Play all signs are stable, labs are essentially ludin Review of Systems All systems: negative Past Medical History Past Medical History: Chest Pain / Angina, GERD/Reflux, Hypertension, Osteoarthritis (OA), Thyroid Disorder Additional Past Medical History / Comment(s): Hiatal hernia(surgically repaired), ulcer yrs ago. History of Any Multi-Drug Resistant Organisms: None Reported Past Surgical History: Breast Surgery, Hysterectomy, Orthopedic Surgery, Tubal Ligation Additional Past Surgical History / Comment(s): RIGHT EYE REPAIR , bilateral breast reduction, laparotomy with the removal of endometrial cyst, [id number](next after 10yr) , left knee arthroscopy, EGD, champ cataracts. Hiatal hernia repair. Past Anesthesia/Blood Transfusion Reactions: No Reported Reaction Past Psychological History: No Psychological Hx Reported Smoking Status: Never smoker Past Alcohol Use History: Rare Past Drug Use History: None Reported - Past Family History Sister(s) Family Medical History: Diabetes Mellitus Additional Family Medical History / Comment(s): Brother with CAD Brother(s) Family Medical History: Myocardial Infarction ([place]) Mother Family Medical History: Diabetes Mellitus Father Family Medical History: Myocardial Infarction ([place]) Daughter(s) Family Medical History: Thyroid Disorder Additional Family Medical History / Comment(s): 1 daughter has a hiatal hernia and another daughter has thyroid problems. Medications and Allergies Home Medications Medication Instructions Recorded Confirmed Type Citalopram Hydrobromide [CeleXA] 20 mg PO QAM 03/22/18 05/08/22 History amLODIPine BESYLATE/BENAZEPRIL 1 cap PO QAM 03/22/18 05/08/22 History [Lotrel 10-20 MG] Levothyroxine Sodium [Synthroid] 125 mcg PO QAM 06/15/20 05/08/22 History Cholecalciferol (Vitamin D3) 75 mcg PO DAILY 10/10/20 05/12/22 History [Vitamin D3 (3000 Iu)] Metoprolol Tartrate [Lopressor] 25 mg PO QAM 10/10/20 05/08/22 History Omeprazole 20 mg PO QAM 10/28/21 05/08/22 History Allergies Allergy/AdvReac Type Severity Reaction Status Date / Time Sulfa (Sulfonamide Allergy hives, Verified 05/12/22 13:26 Antibiotics) rapid heart rate Physical Exam Vitals: Vital Signs Temp Pulse Pulse Resp BP Pulse Ox 05/13/22 09:57 16 05/13/22 07:35 98.7 F 83 16 130/75 91 L 05/13/22 01:50 98.7 F 77 17 120/78 93 L 05/12/22 19:55 65 05/12/22 19:42 69 146/87 96 05/12/22 19:27 69 135/80 96 05/12/22 19:12 70 142/81 96 05/12/22 18:57 69 121/79 95 05/12/22 18:27 66 136/80 95 05/12/22 18:15 98.1 F 65 18 133/75 96 05/12/22 18:12 65 133/75 05/12/22 17:56 62 16 108/58 96 05/12/22 17:41 55 L 16 103/57 96 05/12/22 17:32 97.2 F L 60 16 96/56 93 L 05/12/22 17:26 97.2 F L 60 16 96/56 93 L Intake and Output 05/12/22 05/13/22 05/13/22 22:59 06:59 14:59 Intake Total 800 100 Output Total 50 Balance 750 100 Intake: IV 800 Oral 100 Output: Estimated Blood Loss 50 Other: Voiding Method Toilet # Voids 1 1 Weight 117.48 kg General: The patient is awake and alert, in minimal distress, and does not appear acutely ill. HEENT: PERRLA, EOMI, normal oropharynx Neck: The neck is supple, there is no thyromegaly, lymphadenopathy, tenderness or JVD. Cardiovascular: S1S2 is normal, There is a regular rate and rhythm. No murmur, rub or gallop is appreciated. Respiratory: Lungs are clear to auscultation bilaterally, respirations are non- labored, breath sounds are equal. Gastrointestinal: Soft, non-distended, without masses or organomegaly noted. There is no rebound or guarding present. Bowel sounds are unremarkable. non tender Musculoskeletal: Normal ROM upper extremities , no tenderness, There is no pedal edema. There is no calf tenderness or swelling. No cords were appreci ated. Neurological: CN II-XII intact, there are no obvious motor or sensory deficits. Coordination appears grossly intact. Speech is normal.he is awake alert and oriented 3 today. Skin: Skin is warm and dry and no rashes or lesions are noted.incision site dressing intact Results CBC & Chem 7: 05/13/22 05:49 Labs: Abnormal Lab Results - Last 24 Hours (Table) 05/13/22 Range/Units 05:49 WBC 11.83 H (4.50-10.00) X 10*3/uL RBC 3.85 L (4.10-5.20) X 10*6/uL Hct 35.4 L (37.2-46.3) % Neutrophils # 9.94 H (1.80-7.70) X 10*3/uL Lymphocytes # 0.86 L (0.90-5.00) X 10*3/uL Eosinophils # 0 L (0.04-0.35) X 10*3/uL Assessment and Plan (1) Essential (primary) hypertension Current Visit: Yes Status: Acute Code(s): I10 - ESSENTIAL (PRIMARY) HYPERTENSION SNOMED Code(s): 31719667 (2) Acquired hypothyroidism Current Visit: Yes Status: Acute Code(s): E03.9 - HYPOTHYROIDISM, UNSPECIFIED SNOMED Code(s): 488664846 (3) S/P total knee arthroplasty Current Visit: Yes Status: Acute Code(s): Z96.659 - PRESENCE OF UNSPECIFIED ARTIFICIAL KNEE JOINT SNOMED Code(s): 3339108903413 (4) GERD (gastroesophageal reflux disease) Current Visit: No Status: Acute Code(s): K21.9 - GASTRO-ESOPHAGEAL REFLUX DISEASE WITHOUT ESOPHAGITIS SNOMED Code(s): 470761904 Plan: I will re-order her home medications repeat labs in the a.m. Reevaluate in the next 24 hours Thank you very much for this consultation
[2022-05-13] MEDS ORDERED: NON FORMULARY DRUG (Amlodipine Besylate/Benazepril [Lotrel 10-20 Mg] 1 EACH Capsule) PO SCH (15:00)
[2022-05-13] MEDS: amLODIPine 10 MG TAB PO SCH (15:19)
[2022-05-13] MEDS: lisinopriL 20 MG TAB PO SCH (15:19)
[2022-05-13] MEDS: PANTOPRAZOLE 40 MG TABLET PO SCH (15:19)
[2022-05-13] MEDS: METOPROLOL TARTRATE 25 MG TAB PO SCH (15:19)
[2022-05-13] MEDS: LEVOTHYROXINE 125 MCG TAB PO SCH (15:19)
[2022-05-13] MEDS: CHOLECALCIFEROL 25 MCG (1000 IU) TABLET PO SCH (15:20)
[2022-05-13] MEDS: SENNOSIDES-DOCUSATE SODIUM 1 EACH TAB PO SCH (21:25)
[2022-05-14] MEDS: traMADol 50 MG TAB PO PRN (02:40)
[2022-05-14] MEDS: LEVOTHYROXINE 125 MCG TAB PO SCH (05:52)
[2022-05-14] MEDS: HYDROcodone/APAP 7.5-325MG 1 EACH TAB PO PRN ×2 (07:02→12:11)
[2022-05-14] MEDS: lisinopriL 20 MG TAB PO SCH (07:03)
[2022-05-14] MEDS: amLODIPine 10 MG TAB PO SCH (07:03)
[2022-05-14] MEDS: RIVAROXABAN 10 MG TAB PO SCH (07:03)
[2022-05-14] MEDS: METOPROLOL TARTRATE 25 MG TAB PO SCH (07:03)
[2022-05-14] MEDS: PANTOPRAZOLE 40 MG TABLET PO SCH (07:03)
[2022-05-14] MEDS: CHOLECALCIFEROL 25 MCG (1000 IU) TABLET PO SCH (07:04)
[2022-05-14 07:32] VITALS: BP 104/65; PULSE 80; RESP 16; TEMP 96.9
[2022-05-14] MEDS: LACTATED RINGERS 1,000 ML IV SCH (08:24)
[2022-05-14 09:12] LABS: Basophils # (A) 0.07 X 10*3/uL (0.00-0.10); Basophils % (A) 0.7 %; Eosinophils # (A) 0.06 X 10*3/uL (0.04-0.35); Eosinophils % (A) 0.6 %; HCT 32.5 % (37.2-46.3); HGB 10.9 g/dL (12.0-15.0); Immature Grans, Automated 0.4 %; Lymphocytes # (A) 1.56 X 10*3/uL (0.90-5.00); Lymphocytes % (A) 15.6 %; MCH 31.1 pg (27.0-32.0); MCHC 33.5 g/dL (32.0-37.0); MCV 92.6 fL (80.0-97.0); Mean Platelet Volume 9.8 fL (9.5-12.2); Monocytes # (A) 1.34 X 10*3/uL (0.20-1.00); Monocytes % (A) 13.4 %; NRBC Per 100 WBC 0 /100 WBCS (0.0-0.0); Neutrophils % (A) 69.3 %; Platelet Count 298 X 10*3/uL (140-440); RBC 3.51 X 10*6/uL (4.10-5.20); RDW 13.3 % (11.5-14.5); WBC 9.97 X 10*3/uL (4.50-10.00)
[2022-05-14 09:21] LABS: African American GFR (CKD) 77.8 (60.0-200.0); Anion Gap 9.8 mmol/L (10.00-18.00); BUN/Creat Ratio 20.25 Ratio (12.00-20.00); Blood Urea Nitrogen 17.8 mg/dL (9.0-27.0); Calcium 8.7 mg/dL (8.7-10.3); Carbon Dioxide 23.9 mmol/L (20.0-27.5); Non-African American GFR(CKD) 67.1 (60.0-200.0)
--- NOTE | 2022-05-14 11:25 | P.PN ---
Subjective Progress Note Date: 05/14/22 Principal diagnosis: status post right total knee arthroplasty Patient is evaluated at bedside, her is present with her. She states she is feeling better today. Pain medication is doing what he needs to do. She is ambulating well with therapy. She denies any headaches, lightheadedness, chest pain or shortness of breath. Objective - Vital Signs Vital signs: Vital Signs Temp 96.9 F L 05/14/22 07:29 Pulse 80 05/14/22 07:29 Resp 16 05/14/22 07:29 BP 104/65 05/14/22 07:29 Pulse Ox 92 L 05/14/22 07:29 FiO2 Intake & Output 05/13/22 05/14/22 05/14/22 18:59 06:59 18:59 Intake Total 100 Balance 100 Intake: Oral 100 Other: Voiding Method Toilet Toilet # Voids 2 1 - Exam Right lower extremity: Incision is clean, dry, and intact. The exofin fusion tape is in good condition. There is minimal soft tissue swelling and ecchymosis surrounding the medial and lateral aspects of the incision. Calf is soft, no tenderness with palpation. Plantar flexion, dorsiflexion, EHL, FHL are intact. Sensory exam to light touch throughout the extremity is intact, dorsal pedis pulses 2+. - Labs CBC & Chem 7: 05/14/22 06:18 05/14/22 06:18 Labs: Abnormal Lab Results - Last 24 Hours (Table) 05/14/22 05/14/22 Range/Units 06:18 06:18 RBC 3.51 L (4.10-5.20) X 10*6/uL Hgb 10.9 L (12.0-15.0) g/dL Hct 32.5 L (37.2-46.3) % Monocytes # 1.34 H (0.20-1.00) X 10*3/uL Anion Gap 9.80 L (10.00-18.00) mmol/L BUN/Creatinine Ratio 20.25 H (12.00-20.00) Ratio Assessment and Plan Assessment: Postoperative day #1 status post right total knee arthroplasty Plan: Pain control, plan for discharge on both [place] and tramadol DVT prophylaxis, aspirin 81 mg twice a day for 30 days Stool softeners will be provided for prophylaxis Wound care instructions discussed, this included elevating/icing/showering Encourage incentive spirometer Medical recommendations Home physical therapy/nursing after discharge Discharge planning: Plan for discharge home today Time with Patient: Less than 30
--- NOTE | 2022-05-14 11:30 | P.DS ---
Providers Date of admission: 05/13/22 07:50 Expected date of discharge: 05/14/22 Attending physician: Prieto Leyva Consults: 05/13/22 00:17 Consult Physician Routine Consulting Provider: Nirmal De Dios Consult Reason/Comments: med management Do you want consulting provider notified?: Yes, Notify in am Primary care physician: Nirmal De Dios Hospital Course: Date of admission: 05/12/2022 Date of discharge: 05/14/2022 Admission diagnosis: Status post right total knee arthroplasty Discharge diagnosis: Same Attending physician: Dr. Leyva Surgical procedures: Right total knee arthroplasty Brief history: Patient is a 67-year-old female with a history of progressive primary right knee osteoarthritis. At this point patient has failed conservative treatment measures and has opted to proceed with a elective right total knee arthroplasty. Hospital course: Details of patient's surgery can be found in operative report. Patient tolerated the procedure well and was subsequently transported to orthopedic floor. Patient's orthopeidc and medical care was provided daily. Patient had daily laboratory tests performed for evaluation of overall blood counts. Patient had daily physical therapy to include strengthening range of motion as well as education with walker ambulation. Patient was treated with Xarelto for their postoperative DVT prophylaxis during their inpatient stay. Patient was noted to have a relatively uneventful postoperative course. Patient reported satisfactory pain control with oral pain medications by postoperative day 0. Patient showed satisfactory progress with physical therapy. Patient moved steadily through the program and had no difficulty meeting the goals by postoperative day 2. Given patient's otherwise satisfactory course and having met physical therapy goals, plan is to discharge patient home on postoperative day 2. Discharge condition/disposition: Patient will be discharged home in stable condition. Discharge medications: Instructions are given on resumption of patient's normal daily medications per primary care recommendation, in addition patient will be prescribed [place] 7.5 mg/325 mg, tramadol 50 mg, Senokot-S, aspirin 81 mg. Discharge instructions: 1. Wound care and infection precautions, keep incision dry and covered while showering, no lotions, creams, moisturizers. No soaking, tubs, pools, hottubs. Do not scrub over the incision. 2. Weight-bear as tolerated with walker / cane until follow-up. 3. Ice and elevate when necessary. Do not exceed 20 minutes per hour with ice pack. 4. Utilize compression sleeve until seen at first follow up appointment. 5. Visiting nursing care. 6. Home physical therapy including home CPM. 7. Pain meds and anticoagulants per prescription. 8. Pain medication has potential to cause constipation. Increase oral fluid and fiber intake. Contact primary care provider if you have not had a bowel movement within 48 hours after discharge 9. No anti-inflammatory medication until discussed at first post operative visit, this including Motrin, Aleve, Mobic, Diclofenac. 10. Follow up in office at 2 weeks postop with Jatinder Yi PA-C/Noe Hewitt 11. Follow up with your primary care doctor 7-10 days after discharge. 12. Contact [facility] with any questions, . Procedures: Right total knee arthroplasty Patient Condition at Discharge: Good Plan - Discharge Summary Discharge Rx Participant: No New Discharge Prescriptions: New HYDROcodone/APAP 7.5-325MG [[place] 7.5] 1 each PO Q4HR PRN #42 tab PRN Reason: Pain Sennosides/Docusate Sodium [Senna-S 8.6-50 mg Tablet] 1 each PO DAILY PRN #21 tablet PRN Reason: Constipation Aspirin [Adult Low Dose Aspirin EC] 81 mg PO BID #60 tab traMADol HCl [Ultram] 50 mg PO Q6H PRN #28 tab PRN Reason: Pain No Action amLODIPine BESYLATE/BENAZEPRIL [Lotrel 10-20 MG] 1 cap PO QAM Citalopram Hydrobromide [CeleXA] 20 mg PO QAM Levothyroxine Sodium [Synthroid] 125 mcg PO QAM Cholecalciferol (Vitamin D3) [Vitamin D3 (3000 Iu)] 75 mcg PO DAILY Metoprolol Tartrate [Lopressor] 25 mg PO QAM Omeprazole 20 mg PO QAM Discharge Medication List Citalopram Hydrobromide [CeleXA] 20 mg PO QAM 03/22/18 [History] amLODIPine BESYLATE/BENAZEPRIL [Lotrel 10-20 MG] 1 cap PO QAM 03/22/18 [History] Levothyroxine Sodium [Synthroid] 125 mcg PO QAM 06/15/20 [History] Cholecalciferol (Vitamin D3) [Vitamin D3 (3000 Iu)] 75 mcg PO DAILY 10/10/20 [History] Metoprolol Tartrate [Lopressor] 25 mg PO QAM 10/10/20 [History] Omeprazole 20 mg PO QAM 10/28/21 [History] Aspirin [Adult Low Dose Aspirin EC] 81 mg PO BID #60 tab 05/14/22 [Rx] HYDROcodone/APAP 7.5-325MG [[place] 7.5] 1 each PO Q4HR PRN #42 tab 05/14/22 [Rx] Sennosides/Docusate Sodium [Senna-S 8.6-50 mg Tablet] 1 each PO DAILY PRN #21 tablet 05/14/22 [Rx] traMADol HCl [Ultram] 50 mg PO Q6H PRN #28 tab 05/14/22 [Rx] Follow up Appointment(s)/Referral(s): Noe Schwartz PAC [PHYSICIAN DIRECTOR OF CARDIOPULMONARY SERVICES] - 05/29/22 2:10 pm [facility],Equipment [NON-STAFF] - As Needed (*Please call [facility] once home to arrange delivery of the Continuous Passive Motion (CPM) machine. ) [facility] [NON-STAFF] - 1-2 Days ([facility] will call you to schedule your in home physical therapy and nursing visits. ) Nirmal De Dios MD [Primary Care Provider] - 1 Week Patient Instructions/Handouts: Knee Replacement (DC) Activity/Diet/Wound Care/Special Instructions: Orthopedic Discharge Instructions: 1. Wound care and infection precautions, keep incision dry and covered while showering, no lotions, creams, moisturizers. No soaking, pools, hot tubs. Do not scrub over incision. 2. Weight-bear as tolerated with walker / cane until follow-up. 3. Ice and elevate when necessary. Do not exceed 20 minutes per hour with ice pack. 4. Utilize compression sleeve until seen at first follow up appointment. 5. Pain meds and anticoagulants per prescription. 6. Pain medication has potential to cause constipation. Increase oral fluid and fiber intake. Contact primary care provider if you have not had a bowel movement within 48 hours after discharge. 7. No anti-inflammatory medication until discussed at first post operative visit, this including Motrin, Aleve, Mobic, Diclofenac. 8. Follow up in office at 2 weeks postop with Jatinder Yi PA-C/Noe Schwartz PA-C 9. Follow up with your primary care doctor 7-10 days after discharge. 10. Contact [facility] with any questions, . Discharge Disposition: HOME WITH HOME HEALTH SERVICES
== END 2022-05-14 13:36 | disposition home health service (06) ==
LOC: OR 13:03 → 4SSUR 17:23 → OR 05-13 07:50
PROVIDERS: ADMIT Orthopaedic Surgery; ATTEND Orthopaedic Surgery
DX: M17.11 Unilateral primary osteoarthritis, right knee (principal); G89.18 Other acute postprocedural pain; K21.9 Gastro-esophageal reflux disease without esophagitis; I10 Essential (primary) hypertension; M81.0 Age-related osteoporosis without current pathological fracture; E03.9 Hypothyroidism, unspecified; Z90.710 Acquired absence of both cervix and uterus; Z98.51 Tubal ligation status; Z98.42 Cataract extraction status, left eye; Z98.41 Cataract extraction status, right eye; Z83.3 Family history of diabetes mellitus; Z82.49 Family history of ischemic heart disease and other diseases of the circulatory system; Z79.890 Hormone replacement therapy; Z88.2 Allergy status to sulfonamides; Z79.899 Other long term (current) drug therapy
CPT/HCPCS: 96374; 96375; 97530; 97161; 64999; 64448; 76942; 80048; 85025 ×2; 88300; 73560; 27447; G0378 ×2; C1713 ×2; C1776; J2250; J1100; J0690 ×2; J2405 ×2; J3010; J2795 ×2; J2704; J1170

== ENCOUNTER 2022-08-11 10:00 | Day surgery (SDC) | payer MEDICARE ==
[2022-08-07 11:58] VITALS: BMI 37.8
[~2022-08-11 10:00] MED LIST changes: -ACETAMINOPHEN TAB 500 MG TAB PO PRN; -DEXAMETHASONE SOD PHOSPHATE 4 MG/ML 1 ML VIAL IV ONE; -HYDROmorphone 0.5 MG/0.5 ML SYRINGE IVP PRN; +LACTATED RINGERS 1,000 ML IV SCH; +LIDOCAINE 1% (10MG/ML) FOR IV START INTRADERMA PRN; -MELOXICAM 7.5 MG TAB PO PRN; -ONDANSETRON 4 MG/2 ML VIAL IVP ONE; -TRANEXAMIC ACID IN NACL,ISO-OS 1,000 MG in SALINE 1 100ML.BAG IVPB PRN
[2022-08-11 10:59] VITALS: TEMP 97
[2022-08-11] MEDS ORDERED: LIDOCAINE 2% INJ 20 MG/ML (2 ML VIAL) ONE (11:19)
[2022-08-11] MEDS ORDERED: PROPOFOL 10 MG/ML 20 ML VIAL IV ONE (11:19)
[2022-08-11] MEDS ORDERED: MIDAZOLAM 2 MG/2 ML VIAL ONE (11:19)
[2022-08-11] MEDS ORDERED: fentaNYL (PF) 50 MCG/ML 2 ML AMP ONE (11:19)
--- NOTE | 2022-08-11 11:24 | P.GSHP ---
History of Present Illness H&P Date: 08/11/22 Chief Complaint: GERD 67-year-old female known to our service. Patient with history of large hiatal hernia repaired at [facility]. Patient is having some dysphagia symptoms and underwent dilation following that procedure. Dysphagia symptoms have improved. Apparently on one of her studies she had some small ulcers in the stomach. She was on chronic antiacid therapy for that. She would like to stop that. Today's EGD is to evaluate for any residual ulcer disease. Past Medical History Past Medical History: GERD/Reflux, Hypertension, Osteoarthritis (OA), Thyroid Disorder Additional Past Medical History / Comment(s): Hiatal hernia(surgically repaired), stomach ulcers, hypothyroid, History of Any Multi-Drug Resistant Organisms: None Reported Past Surgical History: Breast Surgery, Hysterectomy, Orthopedic Surgery, Tubal Ligation Additional Past Surgical History / Comment(s): RIGHT EYE REPAIR , bilateral breast reduction, laparotomy with the removal of endometrial cyst, [id number](next after 10yr) , left knee arthroscopy, EGD, champ cataracts. Hiatal hernia repair. total right knee replacement Past Anesthesia/Blood Transfusion Reactions: No Reported Reaction, Motion Sickness Smoking Status: Never smoker - Past Family History Sister(s) Family Medical History: Diabetes Mellitus Additional Family Medical History / Comment(s): Brother with CAD Brother(s) Family Medical History: Diabetes Mellitus, Myocardial Infarction ([place]), Renal Disease Mother Family Medical History: Diabetes Mellitus Father Family Medical History: Myocardial Infarction ([place]) Daughter(s) Family Medical History: Thyroid Disorder Additional Family Medical History / Comment(s): 1 daughter has a hiatal hernia and another daughter has thyroid problems. Medications and Allergies Home Medications Medication Instructions Recorded Confirmed Type Citalopram Hydrobromide [CeleXA] 20 mg PO QAM 03/22/18 08/11/22 History amLODIPine BESYLATE/BENAZEPRIL 1 cap PO QAM 03/22/18 08/11/22 History [Lotrel 10-20 MG] Levothyroxine Sodium [Synthroid] 125 mcg PO QAM 06/15/20 08/11/22 History Cholecalciferol (Vitamin D3) 75 mcg PO DAILY 10/10/20 08/11/22 History [Vitamin D3 (3000 Iu)] Metoprolol Tartrate [Lopressor] 25 mg PO QAM 10/10/20 08/11/22 History Omeprazole 20 mg PO QAM 10/28/21 08/11/22 History Sennosides/Docusate Sodium 1 each PO DAILY PRN #21 tablet 05/14/22 08/11/22 Rx [Senna-S 8.6-50 mg Tablet] Allergies Allergy/AdvReac Type Severity Reaction Status Date / Time Sulfa (Sulfonamide Allergy hives, Verified 08/11/22 10:55 Antibiotics) rapid heart rate Surgical - Exam Vital Signs Temp Pulse Resp BP Pulse Ox 97.0 F L 85 18 148/79 98 08/11/22 10:53 08/11/22 10:53 08/11/22 10:53 08/11/22 10:53 08/11/22 10:53 Physical exam: General: Well-developed, well-nourished HEENT: Normocephalic, sclerae nonicteric Abdomen: Nontender, nondistended Extremities: No edema Neuro: Alert and oriented Assessment and Plan (1) GERD (gastroesophageal reflux disease) Narrative/Plan: Proceed with upper endoscopy at this time Current Visit: No Status: Acute Code(s): K21.9 - GASTRO-ESOPHAGEAL REFLUX DISEASE WITHOUT ESOPHAGITIS SNOMED Code(s): 409618768
--- NOTE | 2022-08-11 11:36 | P.PCN ---
Date of Procedure: 08/11/22 Procedure(s) Performed: Preoperative Dx: GERD Postoperative Dx: Small hiatal hernia, mild gastritis, small gastric polyp Procedure: EGD with Bx Anesthesia: Sedation Endoscopist: Dr. Potter Specimens: Antrum, gastric polyp Endoscopic Procedure: The patient was on the endoscopy table in the left decubitus position. The Olympus gastroscope was inserted into the oropharynx and passed under direct visualization to the region of the third portion of the duodenum. From that point the scope was slowly withdrawn inspecting all surfaces carefully. There were no neoplastic inflammatory or polypoid lesions throughout the duodenum. The pylorus was widely patent. The stomach was carefully inspected. There was on gastritis present. A small polyp was seen. A biopsy of the antrum and a biopsy of the polyp was taken. Retroflexion revealed what appeared represent a plication of the stomach. This would be consistent with the history of toupee procedure. The patient had a what appeared to represent small recurrent hiatal hernia measuring about 2 cm in size. It is possible this portion of the stomach was simply above the wrap. The exact site of the diaphragmatic hiatus was difficult to visualize with certainty. The remainder the esophagus examined appeared normal. The patient was then taken to the recovery room in stable condition per anesthesia guidelines. Recommendations: Resume diet. Await biopsy results. Consider stopping chronic antiacid therapy.
[2022-08-11 11:55] VITALS: BP 125/72; PULSE 75; RESP 15
== END 2022-08-11 12:36 | disposition home or self-care (01) ==
LOC: ORWHC2ENDO 10:00
PROVIDERS: ATTEND Surgery
DX: K31.7 Polyp of stomach and duodenum (principal); K29.50 Unspecified chronic gastritis without bleeding; K44.9 Diaphragmatic hernia without obstruction or gangrene; K21.9 Gastro-esophageal reflux disease without esophagitis; I10 Essential (primary) hypertension; M19.90 Unspecified osteoarthritis, unspecified site; E07.9 Disorder of thyroid, unspecified; Z79.890 Hormone replacement therapy; Z79.899 Other long term (current) drug therapy; Z88.2 Allergy status to sulfonamides; E66.9 Obesity, unspecified; E03.9 Hypothyroidism, unspecified
CPT/HCPCS: 88305; 43239; J2250; J3010; J2704; J2001; 88342

== ENCOUNTER 2022-11-26 00:14 | Emergency (ER) | payer MEDICARE ==
[2022-11-26 00:19] VITALS: TEMP 98
[2022-11-26] MEDS ORDERED: SODIUM CHLORIDE 0.9% 1,000 ML IV STA (00:28)
[2022-11-26] MEDS ORDERED: MORPHINE SULFATE 4 MG/ML SYRINGE IVP STA (00:28)
[2022-11-26] MEDS ORDERED: ONDANSETRON 4 MG/2 ML VIAL IVP STA (00:28)
--- NOTE | 2022-11-26 00:47 | ED ---
General Adult HPI - General Chief complaint: Nausea/Vomiting/Diarrhea Stated complaint: Abdominal Pain, Vomiting Time Seen by Provider: 11/26/22 00:20 Source: patient, family Mode of arrival: wheelchair Limitations: no limitations - History of Present Illness Initial comments: Patient is a 67-year-old female presenting with chief complaint of abdominal pain. Patient states that the pain is primarily across the bilateral lower quadrants and is cramping in nature. She states that she has been vomiting today, though it is mostly bile and gas. Patient states that she had diarrhea a few weeks ago which resolved until she had one episode today. She admits to chills. Admits to some right-sided flank pain. No fevers. No chest pain or difficulty breathing. No hematochezia, melena, hematemesis. No URI like symptoms. No dysuria, hematuria. - Related Data Home Medications Medication Instructions Recorded Confirmed Citalopram Hydrobromide [CeleXA] 20 mg PO QAM 03/22/18 08/11/22 amLODIPine BESYLATE/BENAZEPRIL 1 cap PO QAM 03/22/18 08/11/22 [Lotrel 10-20 MG] Levothyroxine Sodium [Synthroid] 125 mcg PO QAM 06/15/20 08/11/22 Cholecalciferol (Vitamin D3) 75 mcg PO DAILY 10/10/20 08/11/22 [Vitamin D3 (3000 Iu)] Metoprolol Tartrate [Lopressor] 25 mg PO QAM 10/10/20 08/11/22 Omeprazole 20 mg PO QAM 10/28/21 08/11/22 Previous Rx's Medication Instructions Recorded Sennosides/Docusate Sodium 1 each PO DAILY PRN #21 tablet 05/14/22 [Senna-S 8.6-50 mg Tablet] Cephalexin [Keflex] 500 mg PO Q12HR 14 Days #28 cap 11/26/22 Ondansetron Odt [Zofran Odt] 4 mg PO Q8HR PRN #20 tab 11/26/22 Allergies Allergy/AdvReac Type Severity Reaction Status Date / Time Sulfa (Sulfonamide Allergy hives, Verified 11/26/22 00:18 Antibiotics) rapid heart rate Review of Systems ROS Statement: Those systems with pertinent positive or pertinent negative responses have been documented in the HPI. ROS Other: All systems not noted in ROS Statement are negative. Past Medical History Past Medical History: Chest Pain / Angina, GERD/Reflux, Hypertension, Osteoarthritis (OA), Thyroid Disorder Additional Past Medical History / Comment(s): Hiatal hernia(surgically repaired), ulcer yrs ago. History of Any Multi-Drug Resistant Organisms: None Reported Past Surgical History: Breast Surgery, Hysterectomy, Orthopedic Surgery, Tubal Ligation Additional Past Surgical History / Comment(s): RIGHT EYE REPAIR , bilateral breast reduction, laparotomy with the removal of endometrial cyst, [id number](next after 10yr) , left knee arthroscopy, EGD, champ cataracts. Hiatal hernia repair. right total knee Past Anesthesia/Blood Transfusion Reactions: No Reported Reaction Past Psychological History: No Psychological Hx Reported Smoking Status: Never smoker Past Alcohol Use History: Rare Past Drug Use History: None Reported - Past Family History Sister(s) Family Medical History: Diabetes Mellitus Additional Family Medical History / Comment(s): Brother with CAD Brother(s) Family Medical History: Diabetes Mellitus, Myocardial Infarction ([place]), Renal Disease Mother Family Medical History: Diabetes Mellitus Father Family Medical History: Myocardial Infarction ([place]) Daughter(s) Family Medical History: Thyroid Disorder Additional Family Medical History / Comment(s): 1 daughter has a hiatal hernia and another daughter has thyroid problems. General Exam Limitations: no limitations General appearance: alert, anxious Head exam: Present: atraumatic, normocephalic, normal inspection Eye exam: Present: normal appearance, EOMI. Absent: scleral icterus, periorbital swelling Neck exam: Present: normal inspection, full ROM Respiratory exam: Present: normal lung sounds bilaterally. Absent: respiratory distress, wheezes, rales, rhonchi, stridor Cardiovascular Exam: Present: regular rate, normal rhythm, normal heart sounds. Absent: systolic murmur, diastolic murmur, rubs, gallop, clicks GI/Abdominal exam: Present: soft, tenderness. Absent: distended, guarding, rebound, rigid Neurological exam: Present: alert, oriented X3, CN II-XII intact Psychiatric exam: Present: normal affect, normal mood Skin exam: Present: warm, dry, intact, normal color. Absent: rash Course Vital Signs 11/26/22 11/26/22 00:15 03:01 Temperature 98 F Pulse Rate 110 H 96 Respiratory 20 16 Rate Blood Pressure 160/95 149/94 O2 Sat by Pulse 97 94 L Oximetry Medical Decision Making - Medical Decision Making Was pt. sent in by a medical professional or institution (, HAMZAH, FASTENER SEWING MACHINE OPERATOR, urgent care, hospital, or long-term...) When possible be specific @ -No Did you speak to anyone other than the patient for history (EMS, parent, family, police, friend...)? What history was obtained from this source @ -No Did you review nursing and triage notes (agree or disagree)? Why? @ -I reviewed and agree with nursing and triage notes Were old charts reviewed (outside hosp., previous admission, EMS record, old EKG, old radiological studies, urgent care reports/EKG's, long-term records)? Report findings @ -No old charts were reviewed Differential Diagnosis (chest pain, altered mental status, abdominal pain women, abdominal pain men, vaginal bleeding, weakness, fever, dyspnea, syncope, headache, dizziness, GI bleed, back pain, seizure, CVA, palpatations, mental health, musculoskeletal)? @ -MDM Differential Abdominal Pain Women: Appendicitis, Cholecystitis, diverticulosis, ischemic bowel, pancreatitis, hepatitis, UTI, gastroenteritis, AAA, incarcerated hernia, bowel obstruction, constipation, inflammatory bowel, hepatitis, peptic ulcer disease, splenic infarction, perforated viscus, vulvitis, ovarian torsion, PID, kidney stone, placenta abruption... This is not meant to be an all-inclusive list EKG interpreted by me (3pts min.). @ -As above X-rays interpreted by me (1pt min.). @ -None done CT interpreted by me (1pt min.). @ -CT shows mild dilation of the right collecting system with surrounding inflammation which may represent either an upper urinary tract infection or recently passed stone. There is unchanged dilation of the distal right common iliac artery and a stable 1.4 cm right renal artery aneurysm U/S interpreted by me (1pt. min.). @ -None done What testing was considered but not performed or refused? (CT, X-rays, U/S, labs)? Why? @ -None What meds were considered but not given or refused? Why? @ -None Did you discuss the management of the patient with other professionals (professionals i.e. HAMZAH Christina, FASTENER SEWING MACHINE OPERATOR, lab, RT, psych nurse, criminal justice social worker, banana room cutter, teacher, special technical operations officer, child support case officer)? Give summary @ -No Was smoking cessation discussed for >3mins.? @ -No Was critical care preformed (if so, how long)? @ -No Were there social determinants of health that impacted care today? How? (Homelessness, low income, unemployed, alcoholism, drug addiction, transportation, low edu. Level, literacy, decrease access to med. care, skilled nursing, rehab)? @ -No Was there de-escalation of care discussed even if they declined (Discuss DNR or withdrawal of care, Hospice)? DNR status @ -No What co-morbidities impacted this encounter? (DM, HTN, Smoking, COPD, CAD, Cancer, CVA, ARF, Chemo, Hep., AIDS, mental health diagnosis, sleep apnea, morbid obesity)? @ -None Was patient admitted / discharged? Hospital course, mention meds given and route, prescriptions, significant lab abnormalities, going to OR and other pertinent info. @ -Discharge. Patient is a 67-year-old female presented with chief complaint of abdominal pain. Accompanied by vomiting and diarrhea. On physical examination abdomen is tender. WBC 12.6, may be reactive. CT shows mild dilation of the right renal collecting system, otherwise no acute changes. Urine shows evidence of infection. Patient will be treated for pyelonephritis. She is given 1g Rocephin here in the ER and prescription sent to her pharmacy for Keflex 500 mg twice a day for 14 days. She is given strict return parameters and instructed to follow-up with her PCP. Follow-up with PCP. Report back to ER with any new or worsening symptoms. Discussed return parameters and answered all questions. Patient conveyed verbal understanding and agreed to the plan. I discussed this case in detail with my attending Dr. Bran Undiagnosed new problem with uncertain prognosis? @ -No Drug Therapy requiring intensive monitoring for toxicity (Heparin, Nitro, Insulin, Cardizem)? @ -No Were any procedures done? @ -No Diagnosis/symptom? @ Pyelonephritis Acute, or Chronic, or Acute on Chronic? @ -Acute Uncomplicated (without systemic symptoms) or Complicated (systemic symptoms)? @ -Complicated Side effects of treatment? @ -No Exacerbation, Progression, or Severe Exacerbation? @ -No Poses a threat to life or bodily function? How? (Chest pain, USA, AL, pneumonia, PE, COPD, DKA, ARF, appy, cholecystitis, CVA, Diverticulitis, Homicidal, Suicidal, threat to staff... and all critical care pts) @ -Potentially, if not treated properly can lead to sepsis hypoperfusion and . Patient is stable at this time with vital signs WNL in pain well controlled. She Was started on antibiotics and provided with strict return parameters that should prompt immediate reevaluation. - Lab Data Result diagrams: 11/26/22 00:40 11/26/22 01:00 Lab Results 11/26/22 11/26/22 11/26/22 Range/Units 00:40 01:00 03:00 WBC 12.6 H (3.8-10.6) k/uL RBC 4.66 (3.80-5.40) m/uL Hgb 14.0 (11.4-16.0) gm/dL Hct 42.9 (34.0-46.0) % MCV 92.0 (80.0-100.0) fL MCH 30.0 (25.0-35.0) pg MCHC 32.6 (31.0-37.0) g/dL RDW 13.8 (11.5-15.5) % Plt Count 308 (150-450) k/uL MPV 8.6 Neutrophils % 89 % Lymphocytes % 5 % Monocytes % 3 % Eosinophils % 1 % Basophils % 0 % Neutrophils # 11.2 H (1.3-7.7) k/uL Lymphocytes # 0.7 L (1.0-4.8) k/uL Monocytes # 0.4 (0-1.0) k/uL Eosinophils # 0.2 (0-0.7) k/uL Basophils # 0.0 (0-0.2) k/uL Sodium 137 (137-145) mmol/L Potassium 3.8 (3.5-5.1) mmol/L Chloride 106 (98-107) mmol/L Carbon Dioxide 16 L (22-30) mmol/L Anion Gap 15 mmol/L BUN 11 (7-17) mg/dL Creatinine 0.61 (0.52-1.04) mg/dL Est GFR (CKD-EPI)AfAm >90 (>60 ml/min/1.73 sqM) Est GFR (CKD-EPI)NonAf >90 (>60 ml/min/1.73 sqM) Glucose 179 H (74-99) mg/dL Calcium 8.3 L (8.4-10.2) mg/dL Total Bilirubin 1.2 (0.2-1.3) mg/dL AST 27 (14-36) U/L ALT 18 (4-34) U/L Alkaline Phosphatase 89 (38-126) U/L Total Protein 6.8 (6.3-8.2) g/dL Albumin 3.8 (3.5-5.0) g/dL Amylase 46 (30-110) U/L Lipase 45 (23-300) U/L Urine Color Yellow Urine Appearance Cloudy H (Clear) Urine pH 6.5 (5.0-8.0) Ur Specific [place] 1.050 H (1.001-1.035) Urine Protein 1+ H (Negative) Urine Glucose (UA) Negative (Negative) Urine Ketones 1+ H (Negative) Urine Blood Trace H (Negative) Urine Nitrite Positive H (Negative) Urine Bilirubin Negative (Negative) Urine Urobilinogen <2.0 (<2.0) mg/dL Ur Leukocyte Esterase Large H (Negative) Urine RBC 26 H (0-5) /hpf Urine WBC >182 H (0-5) /hpf Urine WBC Clumps Few H (None) /hpf Ur Squamous Epith Cells 1 (0-4) /hpf Urine Mucus Rare H (None) /hpf Disposition Clinical Impression: Pyelonephritis Disposition: HOME SELF-CARE Condition: Good Instructions (If sedation given, give patient instructions): Kidney Infection (ED) Additional Instructions: Follow-up with PCP. Report back to ER with any new or worsening symptoms. Take medication as prescribed. Take Motrin and Tylenol as needed for pain control. Prescriptions: Cephalexin [Keflex] 500 mg PO Q12HR 14 Days #28 cap Ondansetron Odt [Zofran Odt] 4 mg PO Q8HR PRN #20 tab PRN Reason: Nausea Is patient prescribed a controlled substance at d/c from ED?: No Referrals: Nirmal De Dios MD [Primary Care Provider] - 1-2 days Time of Disposition: 03:36
[2022-11-26 00:52] LABS: Basophils % (A) 0 %; Eosinophils # (A) 0.2 k/uL (0-0.7); Eosinophils % (A) 1 %; HCT 42.9 % (34.0-46.0); Lymphocytes # (A) 0.7 k/uL (1.0-4.8); Lymphocytes % (A) 5 %; MCHC 32.6 g/dL (31.0-37.0); Mean Platelet Volume 8.6; Monocytes # (A) 0.4 k/uL (0-1.0); Monocytes % (A) 3 %; Neutrophils # (A) 11.2 k/uL (1.3-7.7); Neutrophils % (A) 89 %; Platelet Count 308 k/uL (150-450); RBC 4.66 m/uL (3.80-5.40); RDW 13.8 % (11.5-15.5); WBC 12.6 k/uL (3.8-10.6)
[2022-11-26 01:35] LABS: ALT 18 U/L (4-34); AST 27 U/L (14-36); African American GFR (CKD) >90 (>60 ml/min/1.73 sqM); Albumin 3.8 g/dL (3.5-5.0); Alkaline Phosphatase 89 U/L (38-126); Amylase 46 U/L (30-110); Anion Gap 15 mmol/L; Blood Urea Nitrogen 11 mg/dL (7-17); Calcium 8.3 mg/dL (8.4-10.2); Carbon Dioxide 16 mmol/L (22-30); Chloride 106 mmol/L (98-107); Glucose 179 mg/dL (74-99); Lipase 45 U/L (23-300); Non-African American GFR(CKD) >90 (>60 ml/min/1.73 sqM); Potassium 3.8 mmol/L (3.5-5.1); Sodium 137 mmol/L (137-145); Total Bilirubin 1.2 mg/dL (0.2-1.3); Total Protein 6.8 g/dL (6.3-8.2)
--- NOTE | 2022-11-26 02:56 | CT ---
EXAM: CT Abdomen and Pelvis With Intravenous Contrast CLINICAL HISTORY: ITS.REASON CT Reason: abdominal pain, mainly L side TECHNIQUE: Axial computed tomography images of the abdomen and pelvis with intravenous contrast. CTDI is 42.47 mGy and DLP is 1944.6 mGy-cm. This CT exam was performed using one or more of the following dose reduction techniques: automated exposure control, adjustment of the mA and/or kV according to patient size, and/or use of iterative reconstruction technique. COMPARISON: 06/17/2020 FINDINGS: Lung bases: Unremarkable. No mass. No consolidation. Mediastinum: Moderate hiatal hernia. ABDOMEN: Liver: Simple bilateral liver cysts measuring up to 4.5 cm at the junction of the right and left lobes of the liver. No solid hepatic masses. Gallbladder and bile ducts: Unremarkable. No calcified stones. No ductal dilation. Pancreas: Unremarkable. No mass. No ductal dilation. Spleen: Unremarkable. No splenomegaly. Adrenals: Unremarkable. No mass. Kidneys and ureters: Mild dilatation of the right collecting system including ureter with surrounding inflammation and enhancement concerning for either a upper urinary tract infection or recently passed stone. Stomach and bowel: Unremarkable. No obstruction. No mucosal thickening. PELVIS: Appendix: No findings to suggest acute appendicitis. Bladder: Unremarkable. No mass. Reproductive: Uterus has been removed. ABDOMEN and PELVIS: Intraperitoneal space: Unremarkable. No free air. No significant fluid collection. Bones/joints: No acute fracture. No dislocation. Soft tissues: Tiny periumbilical hernia. Vasculature: 1.4 cm right renal artery aneurysm stable from prior exam. 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 Lymph nodes: Unremarkable. No enlarged lymph nodes. IMPRESSION: 1. Mild dilatation of the right collecting system including ureter with surrounding inflammation and enhancement concerning for either a upper urinary tract infection or recently passed stone. 2. 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 3. Stable 1.4 cm right renal artery aneurysm.
[2022-11-26 03:07] VITALS: BP 149/94; PULSE 96; RESP 16
[2022-11-26 03:32] LABS: Appearance,Urine Cloudy (Clear); Bilirubin,Urine Negative (Negative); Blood,Urine Trace (Negative); Color,Urine Yellow; Glucose,Urine (UA) Negative (Negative); Ketones,Urine 1+ (Negative); Leukocyte Esterase,Urine Large (Negative); Mucus,Urine Rare /hpf; Nitrite,Urine Positive (Negative); PH, Urine 6.5 (5.0-8.0); Protein,Urine 1+ (Negative); RBC,Urine 26 /hpf (0-5); Squamous Epithelial Cell,Urine 1 /hpf (0-4); Urobilinogen,Urine <2.0 mg/dL (<2.0); WBC,Urine >182 /hpf (0-5)
[2022-11-26] MEDS ORDERED: cefTRIAXone IN SWFI 1,000 MG/10 ML SYRINGE IVP STA (03:34)
== END 2022-11-26 03:52 | disposition home or self-care (01) ==
LOC: EC 00:14
DX: N12 Tubulo-interstitial nephritis, not specified as acute or chronic (principal); B96.20 Unspecified Escherichia coli [E. coli] as the cause of diseases classified elsewhere; K21.9 Gastro-esophageal reflux disease without esophagitis; I10 Essential (primary) hypertension; M19.90 Unspecified osteoarthritis, unspecified site; E07.9 Disorder of thyroid, unspecified; Z88.2 Allergy status to sulfonamides; Z79.899 Other long term (current) drug therapy; Z79.890 Hormone replacement therapy
CPT/HCPCS: 36415; 80053; 82150; 83690; 85025; 81001; 87086; 87077; 87186; 74177; 99284; 96374; 96375 ×2; 96361; J2270; J2405; J0696; Q9967

== ENCOUNTER → 2023-03-09 | Outpatient (CLI) | payer MEDICARE ==
[2023-03-09 08:08] VITALS: BP 126/68; PULSE 68; RESP 18; TEMP 98.3
--- NOTE | 2023-03-09 08:49 | P.HPOB ---
History of Present Illness H&P Date: 03/09/23 Chief Complaint: The patient is here for her routine gynecologic exam and ma mmogram. This is a 67-year-old 104 with an LMP of 1996. The patient is a status post vaginal hysterectomy and rectocele repair for benign reasons. The patient has been experiencing some vaginal and vulvar dryness. She is infrequently sexually active. She is otherwise without gynecologic complaints. Review of Systems She is getting about 13 pounds over the past year. She denies respiratory or cardiac problems. GI: She has had some chronic issues with swallowing since her GI surgery years ago. She states she has to be careful about chewing and swallowing. This is not new for her. Past Medical History Past Medical History: Chest Pain / Angina, GERD/Reflux, Hypertension, Osteoarthritis (OA), Thyroid Disorder Additional Past Medical History / Comment(s): Hiatal hernia(surgically repaired), ulcer yrs ago. Hypothyroidism. 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 History of Any Multi-Drug Resistant Organisms: None Reported Past Surgical History: Breast Surgery, Hysterectomy, Orthopedic Surgery, Tubal Ligation Additional Past Surgical History / Comment(s): RIGHT EYE REPAIR , bilateral breast reduction, laparotomy with the removal of endometrial cyst, [id number](next after 10yr) , left knee arthroscopy, EGD, champ cataracts. Hiatal hernia repair. right total knee. Vaginal hysterectomy with rectocele repair. Past Anesthesia/Blood Transfusion Reactions: No Reported Reaction Past Psychological History: No Psychological Hx Reported (PHQ-2 questioning her was given and she scores 0. This is a negative screen for depression.) Smoking Status: Never smoker Past Alcohol Use History: Rare (3 per year.) Past Drug Use History: None Reported Additional History: She has been since 1984 and is infrequently sexually active. 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 - Past Family History Sister(s) Family Medical History: Diabetes Mellitus Additional Family Medical History / Comment(s): Brother with CAD Brother(s) Family Medical History: Diabetes Mellitus, Myocardial Infarction ([place]), Renal Disease Additional Family Medical History / Comment(s): Renal failure on dialysis. Mother Family Medical History: Diabetes Mellitus Father Family Medical History: Myocardial Infarction ([place]) Daughter(s) Family Medical History: Thyroid Disorder Additional Family Medical History / Comment(s): 1 daughter has a hiatal hernia and another daughter has thyroid problems. Medications and Allergies Home Medications Medication Instructions Recorded Confirmed Type amLODIPine BESYLATE/BENAZEPRIL 1 cap PO QAM 03/22/18 03/09/23 History [Lotrel 10-20 MG] Levothyroxine Sodium [Synthroid] 112 mcg PO QAM 06/15/20 03/09/23 History Cholecalciferol (Vitamin D3) 75 mcg PO DAILY 10/10/20 03/09/23 History [Vitamin D3 (3000 Iu)] Metoprolol Tartrate [Lopressor] 25 mg PO QAM 10/10/20 03/09/23 History Omeprazole 20 mg PO QAM 10/28/21 03/09/23 History Escitalopram [Lexapro] 10 mg PO DAILY 03/09/23 03/09/23 History Allergies Allergy/AdvReac Type Severity Reaction Status Date / Time Sulfa (Sulfonamide Allergy hives, Verified 03/09/23 08:01 Antibiotics) rapid heart rate Exam Vital Signs Temp Pulse Resp BP Pulse Ox 03/09/23 08:01 98.3 F 68 18 126/68 98 Intake and Output 03/08/23 03/09/23 03/09/23 22:59 06:59 14:59 Other: Weight 117.027 kg Height 5 feet 8 inches, weight 258 pounds, BMI 39.2. This is a well-developed well-nourished white female who is alert and oriented times 3 in no acute distress. HEENT: Within normal limits. NECK: Supple without mass or thyromegaly. CHEST AND LUNGS: Clear to auscultation. HEART: Regular rate and rhythm. BREASTS: Are without mass or discharge. Breasts are consistent with bilateral breast reduction surgery. AXILLARY EXAM: Negative for adenopathy. BACK: Negative for CVA tenderness. ABDOMEN: Soft, nontender, without palpable masses. PELVIC EXAM: External genitalia appears normal with mild to moderate atrophy. Vagina appears normal with mild atrophy. There is no evidence of prolapse. Bimanual examination is negative for mass or tenderness. RECTAL EXAM: Rectovaginal exam is negative for mass or tenderness and is negative for occult blood. EXTREMITIES: Nontender. IMPRESSION: 1. 67-year-old menopausal female status post vaginal hysterectomy for benign reasons with normal gynecologic exam. 2. The patient is experiencing vaginal dryness. PLAN: 1. Pap smears have been discontinued. 2. Self breast awareness was discussed with the patient. We have also discussed symptoms associated with inflammatory breast cancer. 3. Screening mammogram will be done today. 4. Osteoporosis prevention was discussed. I have stressed the importance of adequate calcium, vitamin D and regular exercise. Recommended amounts of calcium and vitamin D were also discussed. 5. Trial of Premarin vaginal cream for the vaginal dryness. One sample tube was given to the patient. She will use 1 g into the vagina 2 times weekly. The electronic prescription will be sent to [facility] in [facility]. 6. She was advised to return in one year for her annual well woman exam.
--- NOTE | 2023-03-10 13:21 | MM ---
Reason for Exam: Screening (asymptomatic). Last mammogram was performed 1 year(s) and 4 month(s) ago. Patient History: Menarche at age 11. First Full-Term at age 17. Hysterectomy at age 43. Postmenopausal. 2001, Bilateral Reduction. Risk Values: Karlene 5 year model risk: 1.2%. NCI Lifetime model risk: 3.9%. Prior Study Comparison: 03/22/2018 Bilateral Screening Mammogram, [facility]. 06/28/2019 Bilateral Screening Mammogram, [facility]. 10/28/2021 Bilateral Screening Mammogram, [facility]. Tissue Density: The breast tissue is almost entirely fat. Findings: Analyzed By CAD. Pattern appears symmetrical and stable. Multiple scattered benign-appearing calcifications are present bilaterally. No suspicious groups of microcalcifications, spiculated or lobular masses, architectural distortion or other secondary signs of malignancy are mammographically apparent. Overall Assessment: Benign, BI-RAD 2 Management: Screening Mammogram of both breasts in 1 year. A negative mammogram report should not preclude additional follow up of suspicious palpable abnormalities. Patient should continue monthly self breast exam. A clinical breast exam by your physician is recommended on an annual basis and results should be correlated with mammographic findings. Electronically signed and approved by: Rafael Ozuna D.O. Radiologis
== END ==
LOC: WWCWWP 07:46
PROVIDERS: ATTEND Obstetrics & Gynecology
DX: Z12.31 Encounter for screening mammogram for malignant neoplasm of breast (principal); Z01.419 Encounter for gynecological examination (general) (routine) without abnormal findings; E03.9 Hypothyroidism, unspecified; I10 Essential (primary) hypertension; K21.9 Gastro-esophageal reflux disease without esophagitis; M19.90 Unspecified osteoarthritis, unspecified site; Z79.890 Hormone replacement therapy; Z79.899 Other long term (current) drug therapy; Z88.1 Allergy status to other antibiotic agents; Z88.2 Allergy status to sulfonamides; Z90.710 Acquired absence of both cervix and uterus; Z78.0 Asymptomatic menopausal state
CPT/HCPCS: 77063; 77067

== ENCOUNTER → 2023-04-12 | Outpatient (CLI) | payer MEDICARE | END | disposition home or self-care (01) | LOC: LABWHC1 12:46 | PROVIDERS: ATTEND Orthopaedic Surgery | DX: Z01.812 Encounter for preprocedural laboratory examination (principal); Z22.322 Carrier or suspected carrier of Methicillin resistant Staphylococcus aureus; M16.11 Unilateral primary osteoarthritis, right hip; M25.551 Pain in right hip; I72.2 Aneurysm of renal artery | CPT/HCPCS: 87070 ==

== ENCOUNTER → 2023-11-29 | Outpatient (CLI) | payer MEDICARE ==
[2023-11-29 12:40] LABS: African American GFR (CKD) 84 (>60 ml/min/1.73 sqM); Blood Urea Nitrogen 15 mg/dL (7-17); Non-African American GFR(CKD) 73 (>60 ml/min/1.73 sqM)
--- NOTE | 2023-11-30 11:12 | CT ---
EXAMINATION TYPE: CT angio abdomen pelvis CT DLP: 2243.90 mGycm, Automated exposure control for dose reduction was used. DATE OF EXAM: 11/29/2023 2:46 PM COMPARISON: . . CLINICAL INDICATION:Female, 68 years old with history of I72.2 ANEURYSM OF RENAL ARTERY; [facility], Renal a rtery aneurysm TECHNIQUE: Multiple thin slice sub-millimeter images were obtained before and after administration of contrast. 3-D reconstructed images and maximum intensity projection images were obtained. CT angio abdomen pelvis CT Contrast: Contrast used:100 mL of Isovue 370 with IV Contrast, Oral contrast used: without Oral Contrast None FINDINGS: CTA Abdomen and pelvis: The abdominal aorta does not demonstrate aneurysmal dilatation. Atherosclero tic plaquing is identified within the abdominal aorta. The origins of the superior mesenteric artery , renal arteries, inferior mesenteric artery, and celiac axis are patent. The iliac vessels are norm al in morphology CTA Lower extremities: Right: The common femoral and superficial femoral arteries are patent. The popliteal artery is patent . Anterior and posterior tibial arteries as well as the peroneal artery are patent. Anterior and post erior tibial arteries cross the ankle. Left: The common femoral and superficial femoral arteries are patent. The popliteal artery is patent. Anterior and posterior tibial arteries as well as the peroneal artery are patent. Anterior and poste rior tibial arteries cross the ankle. LOWER CHEST: No evidence of focal consolidation, pneumothorax or pleural effusion. LIVER: Several cysts which have a benign appearance. GALLBLADDER AND BILE DUCTS: Unremarkable. PANCREAS: Unremarkable. SPLEEN: Unremarkable. ADRENAL GLANDS: Unremarkable. KIDNEYS AND URETERS: No evidence of hydronephrosis or renal calculus. The ureters are unremarkable. PELVIS BLADDER: Unremarkable REPRODUCTIVE: Unremarkable. ABDOMEN & PELVIS STOMACH AND BOWEL: Moderately sized hiatal hernia containing stomach.. No evidence of bowel obstruct ion. PERITONEUM: No evidence of pneumoperitoneum or free fluid. VASCULATURE: A 14 mm right distal renal artery aneurysm is present. Sethi of the aneurysm are densely calcified. There is active enhancement within the aneurysm post contrast. A 3.3 cm aneurysm is seen in the distal right common iliac artery at the bifurcation of the internal and external iliac arteries. MUSCULOSKELETAL: No acute osseous abnormalities. Dense metal streak artifact results from right hip a rthroplasty. This limits the visibility of structures the pelvis LYMPH NODES: No gross evidence for lymphadenopathy. SOFT TISSUE/ABDOMINAL WALL: Unremarkable IMPRESSION 1. No evidence of vascular occlusion. 2. Minimal calcific atherosclerotic disease involving abdominal aorta 3. A 14 mm right distal renal artery aneurysm is present. Sethi of the aneurysm are densely calcifi ed. There is active enhancement within the aneurysm post contrast. 4. A 3.3 cm aneurysm is seen in the distal right common iliac artery at the bifurcation of the inte rnal and external iliac arteries 5. Moderate sized hiatal hernia
== END | disposition home or self-care (01) ==
LOC: RADCTMAIN 11:52
PROVIDERS: ATTEND Surgery
DX: I72.2 Aneurysm of renal artery (principal); I72.3 Aneurysm of iliac artery; K44.9 Diaphragmatic hernia without obstruction or gangrene; I70.0 Atherosclerosis of aorta
CPT/HCPCS: 82565; 84520; 36415; 74174; Q9967

== ENCOUNTER 2024-02-28 06:00 | Inpatient (IN) | payer MEDICARE ==
[2024-02-25 08:41] VITALS: BMI 38.4
[~2024-02-28 06:00] MED LIST changes: -LACTATED RINGERS 1,000 ML IV SCH; -LIDOCAINE 1% (10MG/ML) FOR IV START INTRADERMA PRN; +SODIUM CHLORIDE 0.9% 1,000 ML in EMPTY BAG 1 BAG IV ONE
[2024-02-28 06:51] LABS: Glucose,Whole Blood 117 mg/dL (70-110)
[2024-02-28] MEDS: SODIUM CHLORIDE 0.9% 1,000 ML IV ONE (07:15)
[2024-02-28 07:18] VITALS: BP 123/58; PULSE 72; RESP 16; TEMP 98.5
[2024-02-28] MEDS ORDERED: LIDOCAINE 1% INJ 10MG/ML (20 ML MDV) ONE (07:25)
== END 2024-02-28 08:10 | disposition home or self-care (01) | DRG 301 ==
LOC: 2ORMAIN 06:00
PROVIDERS: ADMIT Family Medicine; ATTEND Surgery
DX: I72.3 Aneurysm of iliac artery (principal); I72.2 Aneurysm of renal artery; E03.9 Hypothyroidism, unspecified; I10 Essential (primary) hypertension; Z53.8 Procedure and treatment not carried out for other reasons; Z96.641 Presence of right artificial hip joint; Z96.651 Presence of right artificial knee joint; Z88.2 Allergy status to sulfonamides; Z79.890 Hormone replacement therapy; Z79.899 Other long term (current) drug therapy
CPT/HCPCS: 80048; 85025; 86850; 86900; 86901

== ENCOUNTER → 2024-09-26 | Outpatient (CLI) | payer MEDICARE ==
[2024-09-26 09:41] VITALS: BP 138/81; PULSE 94; RESP 16; TEMP 98.6
--- NOTE | 2024-09-26 10:14 | P.HPOB ---
History of Present Illness H&P Date: 09/26/24 Chief Complaint: The patient is here for her routine gynecologic exam and ma mmogram. This is a 69-year-old with an LMP of 1996. The patient is status post vaginal hysterectomy and rectocele repair for benign reasons. The patient states she continues to have some vaginal dryness, which was improved somewhat with estrogen vaginal cream, but she discontinued it because of concerns using hormones. She is infrequently sexually active. She is otherwise without gyne cologic complaints. Review of Systems She has gained 21 pounds over the past 1-1/2 years. She denies respiratory or cardiac problems. GI: Occasional gastric reflux symptoms at night. Past Medical History Past Medical History: Chest Pain / Angina, GERD/Reflux, Hyperlipidemia, Hypertension, Osteoarthritis (OA), Skin Disorder, Thyroid Disorder Additional Past Medical History / Comment(s): Hiatal hernia(surgically repaired), ulcer yrs ago. Hypothyroidism. Groin intertrigo. 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 History of Any Multi-Drug Resistant Organisms: None Reported Past Surgical History: Breast Surgery, Hysterectomy, Orthopedic Surgery, Tubal Ligation Additional Past Surgical History / Comment(s): RIGHT EYE REPAIR , bilateral breast reduction, laparotomy with the removal of endometrial cyst, [id number](next after 10yr) , left knee arthroscopy, EGD, champ cataracts. Hiatal hernia repair. right total knee. Vaginal hysterectomy with rectocele repair. Rt hip total replacement. Right common iliac aneurysm repair. Past Anesthesia/Blood Transfusion Reactions: No Reported Reaction Past Psychological History: No Psychological Hx Reported Smoking Status: Never smoker Past Alcohol Use History: Rare (2 drinks Per year.) Past Drug Use History: None Reported Additional History: She has been since 1984 and is infrequently sexually active. 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 - Past Family History Sister(s) Family Medical History: Diabetes Mellitus Additional Family Medical History / Comment(s): Brother with CAD Brother(s) Family Medical History: Diabetes Mellitus, Myocardial Infarction ([place]), Renal Disease Additional Family Medical History / Comment(s): Renal failure on dialysis. Mother Family Medical History: Diabetes Mellitus Father Family Medical History: Myocardial Infarction ([place]) Daughter(s) Family Medical History: Thyroid Disorder Additional Family Medical History / Comment(s): 1 daughter has a hiatal hernia and another daughter has thyroid problems. Medications and Allergies Home Medications Medication Instructions Recorded Confirmed Type amLODIPine BESYLATE/BENAZEPRIL 1 cap PO QAM 03/22/18 09/26/24 History [Lotrel 10-20 MG] Levothyroxine Sodium [Synthroid] 112 mcg PO QAM 06/15/20 09/26/24 History Cholecalciferol (Vitamin D3) 75 mcg PO QAM 10/10/20 09/26/24 History [Vitamin D3 (3000 Iu)] Metoprolol Tartrate [Lopressor] 25 mg PO QAM 10/10/20 09/26/24 History Omeprazole 20 mg PO QAM 10/28/21 09/26/24 History Escitalopram [Lexapro] 10 mg PO QAM 03/09/23 09/26/24 History traZODone HCL 100 mg PO HS 04/16/23 09/26/24 History Atorvastatin [Lipitor] 20 mg PO QAM 02/25/24 09/26/24 History Triamcinolone 0.5% Cream [Kenalog 1 dose TOPICAL BID 02/25/24 09/26/24 History 0.5% Cream] Allergies Allergy/AdvReac Type Severity Reaction Status Date / Time Sulfa (Sulfonamide Allergy hives, Verified 02/25/24 08:21 Antibiotics) rapid heart rate Exam Vital Signs Temp Pulse Pulse Resp BP 09/26/24 09:31 98.6 F 96 94 16 138/81 Intake and Output 09/25/24 09/26/24 09/26/24 22:59 06:59 14:59 Other: Weight 126.552 kg Height 5 feet 8 inches, weight 279 pounds, BMI 42.4. This is a well-developed well-nourished white female who is alert and oriented times 3 in no acute distress. HEENT: Within normal limits. NECK: Supple without mass or thyromegaly. CHEST AND LUNGS: Clear to auscultation. HEART: Regular rate and rhythm. BREASTS: Are without mass or discharge. AXILLARY EXAM: Negative for adenopathy. BACK: Negative for CVA tenderness. ABDOMEN: Soft, obese, nontender, without palpable masses. PELVIC EXAM: External genitalia appears normal with mild atrophy. Vagina appears normal with mild atrophy. There is no evidence of prolapse. Bimanual examination is negative for mass or tenderness. RECTAL EXAM: Rectovaginal exam is negative for mass or tenderness and is negative for occult blood. EXTREMITIES: Nontender. IMPRESSION: 1. 68-year-old menopausal female status post vaginal hysterectomy for benign reasons, with normal gynecologic exam. 2. Subjective feeling of vaginal dryness with concerns about using estrogen cream. PLAN: 1. Pap smears have been discontinued. 2. Self breast awareness was discussed with the patient. We have also discussed symptoms associated with inflammatory breast cancer. 3. Screening mammogram will be done today. 4. Osteoporosis prevention was discussed. She had a normal bone density test done about 3 years ago. Will plan on repeating this in 2 years. 5. The patient would like to have a trial of a vaginal moisturizer. She will use this as directed. We have also had a discussion regarding estrogen vaginal cream. If she feels that the estrogen vaginal cream was more helpful, she can call and we can discuss the option of restarting that. 6. She is scheduled for a colonoscopy on 11/07/24. 7. She was advised to return in one year for her annual well woman exam.
--- NOTE | 2024-09-26 17:55 | MM ---
Reason for Exam: Screening (asymptomatic). Last mammogram was performed 1 year(s) and 7 month(s) ago. Patient History: Menarche at age 11. First Full-Term at age 17. Hysterectomy at age 43. Postmenopausal. 2001, Bilateral Reduction. Risk Values: Karlene 5 year model risk: 1.3%. NCI Lifetime model risk: 3.5%. Prior Study Comparison: 06/28/2019 Bilateral Screening Mammogram, [facility]. 10/28/2021 Bilateral Screening Mammogram, [facility]. 03/09/2023 Bilateral MG 3D screening mammo w/cad, [facility]. Tissue Density: There are scattered areas of fibroglandular density. Findings: Analyzed By CAD. There is no suspicious group of microcalcifications or new suspicious mass in either breast. Overall Assessment: Benign, BI-RAD 2 Management: Screening Mammogram of both breasts in 1 year. Patient should continue monthly self-breast exams. A clinical breast exam by your physician is recommended on an annual basis. This exam should not preclude additional follow-up of suspicious palpable abnormalities. Note on Karlene scores and lifetime risk: 1. A Karlene score greater than 3% is considered moderate risk. If this is the case, consider specialist referral to assess eligibility for a risk reducing agent. 2. If overall lifetime risk for the development of breast cancer is 20% or higher, the patient may qualify for future screening with alternating mammogram and breast MRI. [facility], , 09/26/2024 5:53 PM. Electronically signed and approved by: Claire Vega M.D. Radiologist
== END ==
LOC: WWCWWP 09:12
PROVIDERS: ATTEND Obstetrics & Gynecology
DX: Z12.31 Encounter for screening mammogram for malignant neoplasm of breast (principal); N95.1 Menopausal and female climacteric states; N89.8 Other specified noninflammatory disorders of vagina; Z90.710 Acquired absence of both cervix and uterus; Z88.2 Allergy status to sulfonamides
CPT/HCPCS: 77063; 77067

== ENCOUNTER → 2024-10-09 | Outpatient (CLI) | payer MEDICARE ==
[2024-10-09 11:48] LABS: African American GFR (CKD) 77 (>60 ml/min/1.73 sqM); Blood Urea Nitrogen 14 mg/dL (7-17); Non-African American GFR(CKD) 67 (>60 ml/min/1.73 sqM)
--- NOTE | 2024-10-09 12:51 | CT ---
EXAMINATION TYPE: CT angio abdomen pelvis DATE OF EXAM: 10/09/2024 12:27 PM COMPARISON: None. 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 3D reconstruction performed o n a separate workstation. IV CONTRAST: with IV Contrast, patient injected with 100 mL of Isovue 370. (None if empty) CT DLP: mGycm, Automated exposure control for dose reduction was used. FINDINGS: ABDOMENAL AORTA: No evidence for abdominal aortic aneurysm. No dissection. Right-sided rim calcifie d renal artery aneurysm measuring 1.4 x 1.1 cm. Left renal artery is unremarkable. SMA and celiac art eries are within normal limits. Left-sided distal common iliac artery aneurysm measuring 2.2 cm. Sten t of right common iliac artery and right external iliac artery. Iliacs and the major branches are pat ent. LIVER/GB-multiple hepatic cysts. Gallbladder is unremarkable. Biliary tree is within normal limits. PANCREAS- No significant abnormality is seen. SPLEEN- No significant abnormality is seen. ADRENALS- No significant abnormality is seen. KIDNEYS/BLADDER- No significant abnormality is seen. BOWEL-moderate fixed hiatal hernia. GENITAL ORGANS: Changes of hysterectomy. No adnexal masses appreciated. LYMPH NODES- No greater than 1cm abdominal or pelvic lymph nodes areappreciated. OSSEOUS STRUCTURES-right hip prosthesis with streak limiting artifact within the pelvis. OTHER- No significant abnormality is seen. IMPRESSION- 1. Right renal artery aneurysm as described above. 2. 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 Moderate fixed hiatal hernia. 4. Scattered renal hepatic cysts. [facility], , 10/09/2024 12:49 PM
== END | disposition home or self-care (01) ==
LOC: RADCTMAIN 11:14
PROVIDERS: ATTEND Surgery
DX: I72.3 Aneurysm of iliac artery (principal); I72.2 Aneurysm of renal artery; K44.9 Diaphragmatic hernia without obstruction or gangrene; K76.89 Other specified diseases of liver; Z96.641 Presence of right artificial hip joint
CPT/HCPCS: 82565; 84520; 36415; 74174; Q9967

== ENCOUNTER 2024-11-07 08:31 | Day surgery (SDC) | payer MEDICARE ==
[~2024-11-07 08:31] MED LIST changes: +LIDOCAINE 1% (10MG/ML) FOR IV START INTRADERMA PRN; -SODIUM CHLORIDE 0.9% 1,000 ML in EMPTY BAG 1 BAG IV ONE
[2024-11-07] MEDS: IV FLUID CONTINUATION 1,000 ML IV ONE (08:49)
[2024-11-07] MEDS: LACTATED RINGERS 1,000 ML IV SCH (09:07)
[2024-11-07 09:10] VITALS: TEMP 98.6
[2024-11-07] MEDS ORDERED: ONDANSETRON 4 MG/2 ML VIAL ONE (09:28)
[2024-11-07] MEDS ORDERED: PROPOFOL 10 MG/ML 20 ML VIAL IV ONE (09:28)
--- NOTE | 2024-11-07 09:35 | P.GSHP ---
History of Present Illness H&P Date: 11/07/24 Chief Complaint: Colon cancer screening 69-year-old female here for colonoscopy. She thinks her last colonoscopy was 12 years ago. I see no record of that in our chart. No bowel complaints. No family history of colon cancer. Past Medical History Past Medical History: Chest Pain / Angina, GERD/Reflux, Hyperlipidemia, Hypertension, Osteoarthritis (OA), Skin Disorder, Thyroid Disorder Additional Past Medical History / Comment(s): hx hiatal hernia, hx ulcer yrs ago. Hypothyroidism. History of Any Multi-Drug Resistant Organisms: None Reported Past Surgical History: Breast Surgery, Hernia Repair, Hysterectomy, Joint Replacement, Orthopedic Surgery, Tubal Ligation Additional Past Surgical History / Comment(s): RIGHT EYE REPAIR, bilateral breast reduction, laparotomy with the removal of endometrial cyst, Colonoscopy 2012(next after 10yr), left knee arthroscopy, EGD, champ cataracts. Hiatal hernia repair. right total knee replacement. Vaginal hysterectomy with rectocele repair. right total hip replacement. iliac aneurysm repaired Feb 2024. Past Anesthesia/Blood Transfusion Reactions: No Reported Reaction Smoking Status: Never smoker - Past Family History Sister(s) Family Medical History: Diabetes Mellitus Additional Family Medical History / Comment(s): Brother with CAD Brother(s) Family Medical History: Diabetes Mellitus, Myocardial Infarction ([place]), Renal Di sease Additional Family Medical History / Comment(s): Renal failure on dialysis. Mother Family Medical History: Diabetes Mellitus Father Family Medical History: Myocardial Infarction ([place]) Daughter(s) Family Medical History: Thyroid Disorder Additional Family Medical History / Comment(s): 1 daughter has a hiatal hernia and another daughter has thyroid problems. Medications and Allergies Home Medications Medication Instructions Recorded Confirmed Type amLODIPine BESYLATE/BENAZEPRIL 1 cap PO QAM 03/22/18 11/07/24 History [Lotrel 10-20 MG] Levothyroxine Sodium [Synthroid] 112 mcg PO QAM 06/15/20 11/07/24 History Cholecalciferol (Vitamin D3) 75 mcg PO QAM 10/10/20 11/07/24 History [Vitamin D3 (3000 Iu)] Metoprolol Tartrate [Lopressor] 25 mg PO QAM 10/10/20 11/07/24 History Omeprazole 20 mg PO QAM 10/28/21 11/07/24 History Escitalopram [Lexapro] 10 mg PO QAM 03/09/23 11/07/24 History traZODone HCL 100 mg PO HS 04/16/23 11/07/24 History Atorvastatin [Lipitor] 20 mg PO QAM 02/25/24 11/07/24 History Triamcinolone 0.5% Cream [Kenalog 1 dose TOPICAL BID 02/25/24 11/07/24 History 0.5% Cream] Aspirin [Adult Low Dose Aspirin EC] 81 mg PO DAILY 11/03/24 11/07/24 History Allergies Allergy/AdvReac Type Severity Reaction Status Date / Time Sulfa (Sulfonamide Allergy hives, Verified 11/07/24 09:05 Antibiotics) rapid heart rate Surgical - Exam Vital Signs Temp Pulse Resp BP Pulse Ox 98.6 F 83 16 147/79 96 11/07/24 09:02 11/07/24 09:02 11/07/24 09:02 11/07/24 09:02 11/07/24 09:02 Physical exam: General: Well-developed, well-nourished HEENT: Normocephalic, sclerae nonicteric Abdomen: Nontender, nondistended Extremities: No edema Neuro: Alert and oriented Assessment and Plan (1) Colon cancer screening Narrative/Plan: Will proceed with colonoscopy at this time. Current Visit: Yes Status: Acute Code(s): Z12.11 - ENCOUNTER FOR SCREENING FOR MALIGNANT NEOPLASM OF COLON SNOMED Code(s): 675158114
--- NOTE | 2024-11-07 09:52 | P.PCN ---
Date of Procedure: 11/07/24 Procedure(s) Performed: PREOPERATIVE DIAGNOSIS: Colon cancer screening POSTOPERATIVE DIAGNOSIS: Tortuous colon, diverticulosis, poor prep PROCEDURE: Colonoscopy ANESTHESIA: MAC SURGEON: Marco Antonio Potter M.D. SPECIMENS: None ENDOSCOPIC PROCEDURE: The patient was placed on the endoscopy table in the left decubitus position. The Olympus colonoscope was inserted into the anus and passed under direct visualization to the mid to proximal ascending colon. I could not visualize the cecum. The patient had significant tortuosity. With abdominal pressure we were able to advance the scope somewhat however the patient started having some coughing symptoms and it was decided not to continue with any further abdominal pressure. We were unable to advance the scope more proximal than that. The scope was withdrawn slowly. There were no neoplastic inflammatory or polypoid lesions throughout the ascending, transverse, descending, sigmoid and rectum. There was moderate scattered diverticulosis noted throughout the colon. The patient's prep was slightly suboptimal likely as a consequence of the patient's diverticulosis. Digital rectal examination was normal. The patient was taken to the recovery room in stable condition per anesthesia guidelines. RECOMMENDATIONS: Resume diet. Consider Cologuard testing in the short-term possibly 2 to 3 years from now and repeat colonoscopy if Cologuard abnormal.
[2024-11-07 09:59] VITALS: PULSE 70
[2024-11-07 10:12] VITALS: BP 116/75; RESP 17
== END 2024-11-07 10:43 | disposition home or self-care (01) ==
LOC: ORWHC2ENDO 08:31
PROVIDERS: ATTEND Surgery
DX: Z12.11 Encounter for screening for malignant neoplasm of colon (principal); K57.30 Diverticulosis of large intestine without perforation or abscess without bleeding; Z53.8 Procedure and treatment not carried out for other reasons; I10 Essential (primary) hypertension; E78.5 Hyperlipidemia, unspecified; E03.9 Hypothyroidism, unspecified; K21.9 Gastro-esophageal reflux disease without esophagitis; M19.90 Unspecified osteoarthritis, unspecified site; F32.A Depression, unspecified; Z79.890 Hormone replacement therapy; Z79.82 Long term (current) use of aspirin; Z79.899 Other long term (current) drug therapy; Z87.11 Personal history of peptic ulcer disease; Z88.2 Allergy status to sulfonamides
CPT/HCPCS: G0121; J2405; J2704